=== PATIENT | male | born 1965 | race Caucasian/White ===

== ENCOUNTER → 2019-03-30 09:52 | Outpatient (BNVA) | payer MEDICARE, MEDICAID, SELFPAY | PROVIDERS: Family Provider Family Medicine; PCP Family Medicine; Visit Provider Nurse Practitioner | DX: I10 Essential (primary) hypertension (principal); E55.9 Vitamin D deficiency, unspecified; M81.0 Age-related osteoporosis without current pathological fracture; Z79.83 Long term (current) use of bisphosphonates | CPT/HCPCS: 80053; 82306 ==

== ENCOUNTER 2019-04-13 10:22 | Outpatient (CLI) | payer MEDICARE, MEDICAID, SELFPAY ==
--- NOTE | 2019-04-13 16:15 | XR_ITS ---
WS: [id number] SCREENING DEXA SCAN [place] CLINICAL INFORMATION: bone evaluation COMPARISON: December 24, 2016 FINDINGS: The L1-L4 bone mineral density measures 0.907. This corresponds to a T score score of -2.6 and Z scor e of -1.8. Left femoral neck bone mineral density measures 0.718. This corresponds to a T score of -2.7 and Z sc ore of -1.9. Right femoral neck bone mineral density measures 0.730. This corresponds to a T score -2.6of and Z sc ore of -1.9. XR/XR DEXA axial skeleton* 57405 IMPRESSION: Osteoporosis Patient's FRAX calculated 10 year probability for major osteoporotic fracture i s 6.9 % and osteoporotic hip fracture is 1.5%. Bone mineral density in the lumbar spine has increased 0.7% and decreased -0.1% in the femoral necks since 2017.
== END 2019-04-13 10:23 | disposition home or self-care (01) ==
LOC: RADWPI 10:30
PROVIDERS: Family Provider Family Medicine; PCP Nurse Practitioner; Visit Provider Nurse Practitioner
DX: M81.0 Age-related osteoporosis without current pathological fracture (principal); Z79.83 Long term (current) use of bisphosphonates
CPT/HCPCS: 77080

== ENCOUNTER → 2019-05-23 09:58 | Outpatient (BNVA) | payer MEDICARE, MEDICAID, SELFPAY | PROVIDERS: Family Provider Family Medicine; PCP Nurse Practitioner; Visit Provider Nurse Practitioner | DX: R39.81 Functional urinary incontinence (principal); F63.9 Impulse disorder, unspecified; M81.0 Age-related osteoporosis without current pathological fracture; Z79.83 Long term (current) use of bisphosphonates; E55.9 Vitamin D deficiency, unspecified; K21.9 Gastro-esophageal reflux disease without esophagitis; R82.998 Other abnormal findings in urine | CPT/HCPCS: 80053; 81003; 85025; G0103 ==

== ENCOUNTER → 2019-05-24 08:49 | Outpatient (BNVA) | payer MEDICARE, MEDICAID, SELFPAY | PROVIDERS: Family Provider Family Medicine; PCP Nurse Practitioner; Visit Provider Psychiatry & Neurology Psychiatry | DX: F79 Unspecified intellectual disabilities (principal); F63.9 Impulse disorder, unspecified | CPT/HCPCS: 99213 ==

== ENCOUNTER → 2019-06-29 11:08 | Outpatient (BNVA) | payer MEDICARE, MEDICAID, SELFPAY | PROVIDERS: Family Provider Family Medicine; PCP Nurse Practitioner; Visit Provider Nurse Practitioner | DX: L55.9 Sunburn, unspecified (principal); K21.9 Gastro-esophageal reflux disease without esophagitis | CPT/HCPCS: 81000 ==

== ENCOUNTER 2019-07-12 09:23 | Outpatient (CLI) | payer MEDICARE, MEDICAID, SELFPAY ==
--- NOTE | 2019-07-12 09:15 | XR_ITS ---
WS: [id number] ABDOMEN: SUPINE FILM HISTORY: KIDNEY AND URETERAL STONE COMPARISON: 03/09/2018, 07/07/2018 Normal bowel gas pattern. Mild osteopenia. Right kidney: No calcifications identified. Kidney is obscured by bowel content. Left kidney: Ovoid calcification over the LEFT abdomen measures 1.6 cm. No ureteral calcification. XR/XR KUB [id number] IMPRESSION: LEFT renal calcification 1.6 cm.
== END 2019-07-12 09:24 | disposition home or self-care (01) ==
LOC: RAD 09:26
PROVIDERS: Family Provider Family Medicine; PCP Nurse Practitioner; Visit Provider Urology
DX: N20.2 Calculus of kidney with calculus of ureter (principal); N20.0 Calculus of kidney; N39.0 Urinary tract infection, site not specified; R39.198 Other difficulties with micturition
CPT/HCPCS: 74018; 80053; 81001

== ENCOUNTER → 2019-09-19 07:34 | Outpatient (BNVA) | payer MEDICARE, MEDICAID, SELFPAY | PROVIDERS: Family Provider Family Medicine; PCP Nurse Practitioner; Visit Provider Psychiatry & Neurology Psychiatry | DX: F63.9 Impulse disorder, unspecified (principal); F79 Unspecified intellectual disabilities; Z79.899 Other long term (current) drug therapy | CPT/HCPCS: 99214 ==

== ENCOUNTER → 2019-09-27 09:03 | Outpatient (BNVA) | payer MEDICARE, MEDICAID, SELFPAY | PROVIDERS: Family Provider Family Medicine; PCP Nurse Practitioner; Visit Provider Psychiatry & Neurology Psychiatry | DX: Z79.899 Other long term (current) drug therapy (principal) | CPT/HCPCS: 80164 ==

== ENCOUNTER → 2019-10-17 07:49 | Outpatient (BNVA) | payer MEDICARE, MEDICAID, SELFPAY | PROVIDERS: Family Provider Family Medicine; PCP Nurse Practitioner; Visit Provider Psychiatry & Neurology Psychiatry | DX: F63.9 Impulse disorder, unspecified (principal); F79 Unspecified intellectual disabilities | CPT/HCPCS: 99214 ==

== ENCOUNTER → 2019-11-14 07:49 | Outpatient (BNVA) | payer MEDICARE, MEDICAID, SELFPAY | PROVIDERS: Family Provider Family Medicine; PCP Nurse Practitioner; Visit Provider Psychiatry & Neurology Psychiatry | DX: F63.9 Impulse disorder, unspecified (principal); F79 Unspecified intellectual disabilities | CPT/HCPCS: 99213 ==

== ENCOUNTER → 2019-11-21 16:53 | Outpatient (BNVA) | payer MEDICARE, MEDICAID, SELFPAY | PROVIDERS: Family Provider Family Medicine; PCP Nurse Practitioner; Visit Provider Nurse Practitioner | DX: N39.44 Nocturnal enuresis (principal) | CPT/HCPCS: 81000 ==

== ENCOUNTER → 2020-01-09 07:35 | Outpatient (BNVA) | payer MEDICARE, MEDICAID, SELFPAY | PROVIDERS: Family Provider Family Medicine; PCP Nurse Practitioner; Visit Provider Psychiatry & Neurology Psychiatry | DX: F79 Unspecified intellectual disabilities (principal); F63.9 Impulse disorder, unspecified; Z79.899 Other long term (current) drug therapy | CPT/HCPCS: 99214 ==

== ENCOUNTER → 2020-02-02 08:16 | Outpatient (BNVA) | payer MEDICARE, MEDICAID, SELFPAY | PROVIDERS: Family Provider Family Medicine; PCP Nurse Practitioner; Visit Provider Psychiatry & Neurology Psychiatry | DX: F63.9 Impulse disorder, unspecified (principal); F79 Unspecified intellectual disabilities | CPT/HCPCS: 80053; 80164; 85025; 99213 ==

== ENCOUNTER → 2020-04-17 07:17 | Outpatient (BNVA) | payer MEDICARE, MEDICAID, SELFPAY | PROVIDERS: Family Provider Family Medicine; PCP Nurse Practitioner; Visit Provider Psychiatry & Neurology Psychiatry | DX: F63.9 Impulse disorder, unspecified (principal); F79 Unspecified intellectual disabilities | CPT/HCPCS: 99214 ==

== ENCOUNTER → 2020-06-15 07:33 | Outpatient (BNVA) | payer MEDICARE, MEDICAID, SELFPAY | PROVIDERS: Family Provider Family Medicine; PCP Nurse Practitioner; Visit Provider Psychiatry & Neurology Psychiatry | DX: F63.9 Impulse disorder, unspecified (principal); F79 Unspecified intellectual disabilities; R15.9 Full incontinence of feces | CPT/HCPCS: 99213 ==

== ENCOUNTER → 2020-06-26 09:35 | Outpatient (BNVA) | payer MEDICARE, MEDICAID, SELFPAY | PROVIDERS: Family Provider Family Medicine; PCP Nurse Practitioner; Visit Provider Nurse Practitioner | DX: E55.9 Vitamin D deficiency, unspecified (principal); K21.9 Gastro-esophageal reflux disease without esophagitis; Z12.5 Encounter for screening for malignant neoplasm of prostate; Z13.6 Encounter for screening for cardiovascular disorders | CPT/HCPCS: 80053; 80061; 80164; 82306; 85025; G0103 ==

== ENCOUNTER 2020-07-10 09:58 | Outpatient (CLI) | payer MEDICARE, MEDICAID, SELFPAY ==
--- NOTE | 2020-07-10 10:00 | XRR_ITS ---
PROCEDURE INFORMATION: Exam: XR Abdomen Exam date and time: 07/10/2020 10:16 AM Age: 54 years old Clinical indication: Condition or disease; Kidney or ureter condition; Calculus (stone) in kidney; Additional info: N20.0 - calculus of kidney TECHNIQUE: Imaging protocol: XR of the abdomen. Views: Frontal supine view of the abdomen. 1 View. COMPARISON: CR XR KUB [id number] 07/12/2019 9:32 AM FINDINGS: Gastrointestinal tract: Prominent stool. Organs: Persistent 17 mm calcification overlying the left renal fossa suggesting urolithiasis. Calcifications overlying the inferior pelvis, presumably prostate in etiology. Bones/joints: Mild scoliosis and degenerative change. When correlating with the previous study, no significant interval changes are present. XR/XR KUB [id number] IMPRESSION: Persistent 17 mm calcification overlying the left renal fossa suggesting urolithiasis.
== END 2020-07-10 09:59 | disposition home or self-care (01) ==
LOC: RAD 10:04
PROVIDERS: PCP Nurse Practitioner; Visit Provider Urology
DX: N20.0 Calculus of kidney (principal)
CPT/HCPCS: 74018; 81003

== ENCOUNTER → 2020-08-09 12:56 | Outpatient (BNVA) | payer MEDICARE, MEDICAID, SELFPAY | PROVIDERS: PCP Nurse Practitioner; Visit Provider Psychiatry & Neurology Psychiatry | DX: F63.9 Impulse disorder, unspecified (principal); F79 Unspecified intellectual disabilities; N39.44 Nocturnal enuresis | CPT/HCPCS: 99214 ==

== ENCOUNTER 2020-08-10 07:05 | Outpatient (CLI) | payer MEDICARE, MEDICAID, SELFPAY | END 2020-08-10 07:06 | disposition home or self-care (01) | LOC: LAB 07:06 | PROVIDERS: PCP Nurse Practitioner; Visit Provider Psychiatry & Neurology Psychiatry | DX: Z79.899 Other long term (current) drug therapy (principal) | CPT/HCPCS: 36415; 80164 ==

== ENCOUNTER → 2020-08-29 13:43 | Outpatient (BNVA) | payer MEDICARE, MEDICAID, SELFPAY | PROVIDERS: PCP Nurse Practitioner; Visit Provider Psychiatry & Neurology Psychiatry | DX: F63.9 Impulse disorder, unspecified (principal); F79 Unspecified intellectual disabilities; F98.0 Enuresis not due to a substance or known physiological condition; F98.1 Encopresis not due to a substance or known physiological condition | CPT/HCPCS: 99214 ==

== ENCOUNTER → 2021-01-07 11:00 | Outpatient (BNVA) | payer MEDICARE, MEDICAID, SELFPAY | PROVIDERS: PCP Nurse Practitioner; Visit Provider Psychiatry & Neurology Psychiatry | DX: F63.9 Impulse disorder, unspecified (principal); F79 Unspecified intellectual disabilities; F98.1 Encopresis not due to a substance or known physiological condition; F98.0 Enuresis not due to a substance or known physiological condition; M81.0 Age-related osteoporosis without current pathological fracture; H60.90 Unspecified otitis externa, unspecified ear | CPT/HCPCS: 99213 ==

== ENCOUNTER → 2021-04-23 10:23 | Outpatient (BNVA) | payer MEDICARE, MEDICAID, SELFPAY | PROVIDERS: PCP Nurse Practitioner; Visit Provider Psychiatry & Neurology Psychiatry | DX: F63.9 Impulse disorder, unspecified (principal); F79 Unspecified intellectual disabilities; F98.0 Enuresis not due to a substance or known physiological condition; F98.1 Encopresis not due to a substance or known physiological condition; Z79.899 Other long term (current) drug therapy | CPT/HCPCS: 99214 ==

== ENCOUNTER → 2021-04-24 09:38 | Outpatient (BNVA) | payer MEDICARE, MEDICAID, SELFPAY | PROVIDERS: PCP Nurse Practitioner; Visit Provider Psychiatry & Neurology Psychiatry | DX: Z79.899 Other long term (current) drug therapy (principal) | CPT/HCPCS: 80053; 80164 ==

== ENCOUNTER 2021-07-09 09:32 | Outpatient (CLI) | payer MEDICARE, MEDICAID, SELFPAY ==
--- NOTE | 2021-07-09 09:30 | XR_ITS ---
WS: [id number] XR KUB [id number] REASON FOR EXAM: Renal Stone FINDINGS: 18 x 10 mm calculus overlies the upper pole of the left kidney and is unchanged compared to 07/10/[address] demonstrated small intrarenal calculi are not readily identifiable. No other calculi id entified in the urinary tract. No other significant abnormality of the abdomen or pelvis. XR/XR KUB [id number] IMPRESSION: Stable left upper pole renal calculus.
== END 2021-07-09 09:33 | disposition home or self-care (01) ==
LOC: RAD 09:38
PROVIDERS: PCP Family Medicine; Visit Provider Urology
DX: N20.0 Calculus of kidney (principal); N39.0 Urinary tract infection, site not specified
CPT/HCPCS: 74018; 81003; 87086; 99213

== ENCOUNTER → 2021-08-27 10:23 | Outpatient (BNVA) | payer MEDICARE, MEDICAID, SELFPAY | PROVIDERS: PCP Family Medicine; Visit Provider Psychiatry & Neurology Psychiatry | DX: F63.9 Impulse disorder, unspecified (principal); F79 Unspecified intellectual disabilities; Z79.899 Other long term (current) drug therapy | CPT/HCPCS: 99213 ==

== ENCOUNTER → 2021-10-04 13:33 | Outpatient (BNVA) | payer MEDICARE, MEDICAID, SELFPAY | PROVIDERS: PCP Family Medicine; Visit Provider Psychiatry & Neurology Psychiatry | DX: Z79.899 Other long term (current) drug therapy (principal) | CPT/HCPCS: 80048; 80053; 80164 ==

== ENCOUNTER 2022-06-23 13:11 | Inpatient (IN) | payer MEDICARE, MEDICAID, SELFPAY ==
[2022-06-23] VITALS (62 sets, daily range): BP systolic 83–117; BP diastolic 49–72; PULSE 52–117; RESP 14–23; TEMP 35.2–36.9; O2SAT 94–100
--- NOTE | 2022-06-23 13:14 | ED_ITS ---
HPI - Weakness General: Chief complaint: Weakness Stated complaint: LETHARGY/ WEAKNESS Time Seen by Provider: 06/23/22 13:14 Limitations: altered mental status History of Present Illness: Mr. Espinoza is a 56-year-old gentleman with history of, per chart review, intellectual disability, hypertension, hyperlipidemia, recurrent UTI presenting to the emergency department for mental status change. The patient himself provides very limited history and denies recent changes that he is noticed. Apparently he showed up at his day program at around 9 AM and staff there noticed that he was different. He was urinating frequently, not ambulating, and seemed more confused with possibility of slurred speech. Symptoms prior to arrival at the day program are unclear. History is otherwise limited by mental status change. Review of Systems General: Reports: ROS unobtainable due to mental status PFSH ED PFSH: Medical History Encounter for ongoing osteoporosis bisphosphonate therapy Essential (primary) hypertension Functional urinary incontinence GERD (gastroesophageal reflux disease) Impulse control disorder Intellectual disability Left renal stone Mixed hyperlipidemia Psychiatric care Recurrent UTI Slow urinary stream Vitamin D deficiency Surgical History Extrusion of teeth All teeth 2018 History of lithotripsy Family History Mother Osteoarthritis Social History Smoking and tobacco status: never smoked Second hand smoke exposure: No Smoking risk assessment/counseling performed?: No Alcohol intake: never Desire information about alcohol rehabilitation?: No Counseling given: No Substance/Drug Use: never Desire information about substance/drug rehabilitation?: No Counseling given: No Adopted: No Caregiver/support person: Yes Lives independently: No Household members: caregiver Housing: House Marital status: Single Number of children: 0 Current occupational status: disabled Current occupational exposures/hazards: No Pets and animals: Yes Pets & animals: dog(s) Current gender identity: Male Physical Exam Const: GENERAL APPEARANCE: cooperative, well developed and ill appearing HENMT: COMMON NORMALS: normocephalic and atraumatic HEAD & SCALP: normocephalic and atraumatic Eye: COMMON NORMALS: conjunctivae normal CONJUNCTIVA: Yes conjunctivae normal SCLERA: sclerae normal Neck/C-Spine: COMMON NORMALS: supple GENERAL: Yes trachea midline Resp: COMMON NORMALS: clear to auscultation bilaterally EFFORT & INSPECTION: Yes able to speak in complete sentences AUSCULTATION: clear to auscultation bilaterally Cardio: COMMON NORMALS: regular rate and regular rhythm RATE: regular rate RHYTHM: regular rhythm GI: COMMON NORMALS: Soft to palpation PALPATION: Yes Soft to palpation and Yes Tenderness to palpation present (GI) Extremity: GENERAL: Yes normal exam except as noted and No edema Neuro: COMMON NORMALS: moves all extremities SENSORIUM/ORIENTATION: Yes Orientation impaired and Yes somnolent Course Vital Signs: Vital signs: Vital Signs Temperature 98.5 F 06/25/22 04:00 Pulse Rate 58 L 06/25/22 14:41 Respiratory Rate 16 06/25/22 14:41 Blood Pressure 102/89 06/25/22 14:41 Pulse Oximetry 95 06/25/22 14:41 Oxygen Delivery Me thod Room Air 06/25/22 04:00 MDM - Weakness Medical Decision Making 56-year-old gentleman presenting with altered mental status. He is somewhat ill-appearing however nontoxic. Exam as above. EKG notable for sinus bradycardia with normal axis and intervals, there are nonspecific ST segment abnormalities, no STEMI. Labs notable for no leukocytosis, normal hemoglobin and thrombocytopenia again noted. ABG without clear explanation for symptoms. No acute metabolic derang ement. Negative range 2-hour delta troponin. Urinalysis is concerning for urinary tract infection. Toxic ingestions and UDS are negative. CT head negative for acute intracranial pathology. Given severity of symptoms additional CT imaging is warranted. Findings of possible gastritis, right UVJ stone, incidental findings. Patient treated in the emergency department with antibiotics for UTI and IV fluids. Most likely etiology of symptoms is complicated UTI. Discussed with hospitalist service who was agreeable to admit patient. Medical Records I reviewed the patient's medical records. Lab Data I reviewed the patient's lab results. 06/25/22 06:40 06/25/22 06:40 Radiology Impressions Chest X-Ray 06/23/22 13:20 IMPRESSION: 1. No acute cardiopulmonary finding. Head CT 06/23/22 13:20 IMPRESSION: 1. No evidence of intracranial hemorrhage or mass effect. 2. Moderate small vessel changes. Moderate parenchymal volume loss. 3. Vascular calcification. 4. No acute intracranial findings. Chest/Abdomen/Pelvis CT 06/23/22 15:17 IMPRESSION: 1. Dependent atelectasis in the lungs bilaterally. 2. Multiple intra-articular loose bodies in the anterior right shoulder joint. 3. Incidental/nonacute findings are listed in the report. IMPRESSION: 1. Findings raising suspicion for gastritis. Recommend clinical correlation. Further evaluation with upper endoscopy recommended as clinically indicated. 2. 5.1 mm stone at the right ureterovesicular junction. No hydronephrosis. 3. Stable nonobstructing stones in the left kidney, the largest measures 1.6 x 1.1 cm. 4. The bladder is decompressed by a Bond catheter. Air in the bladder, likely related to Bond catheter placement. 5. Scattered diverticula in the sigmoid colon. No evidence for diverticulitis. 6. Scattered diverticula in the colon. No evidence for diverticulitis. 7. Incidental/nonacute findings are listed in the report. COMMENTS: Consistent with the [employer]'s Incidental Findings Committee white paper (J Am Aly Radiol 2018): Any incidental renal lesion less than 1 cm or classified as too small to characterize, or any incidental cystic renal lesion characterized as simple-appearing, is likely benign. No follow-up imaging is recommended for these lesions per consensus recommendations based on imaging criteria. Laboratory Results WBC 4.1 10^3/uL (4.0-10.0) 06/23/22 14:59 RBC 4.16 10^6/uL (4.1-5.3) 06/23/22 14:59 Hgb 13.8 g/dL (11.7-16.6) 06/23/22 14:59 Hct 41.7 % (42.0-52.0) L 06/23/22 14:59 MCV 100.2 fl (80-94) H 06/23/22 14:59 MCH 33.2 pg (28.0-34.0) 06/23/22 14:59 MCHC 33.1 g/dL (30.0-36.0) 06/23/22 14:59 RDW 12.9 % (12.1-15.1) 06/23/22 14:59 Plt Count 104 10^3/cmm (130-400) L 06/23/22 14:59 MPV 9.7 fL (7.4-10.4) 06/23/22 14:59 Neut % (Auto) 54.0 % 06/23/22 14:59 Lymph % (Auto) 33.7 % 06/23/22 14:59 [place] % (Auto) 9.9 % 06/23/22 14:59 Eos % (Auto) 1.7 % 06/23/22 14:59 Baso % (Auto) 0.5 % 06/23/22 14:59 Neut # (Auto) 2.23 10^3/uL (1.8-7.7) 06/23/22 14:59 Lymph # (Auto) 1.4 10^3/uL (0.8-4.8) 06/23/22 14:59 [place] # (Auto) 0.4 10^3/uL (0.2-0.9) 06/23/22 14:59 Eos # (Auto) 0.1 10^3/uL (0.0-0.8) 06/23/22 14:59 Baso # (Auto) 0.0 10^3/uL (0.0-0.1) 06/23/22 14:59 Nucleated RBC % (auto) 0 % 06/23/22 14:59 Nucleated RBCs # 0.0 /100WBC 06/23/22 14:59 Specimen Type Arterial 06/23/22 13:30 Sample Site Radial, left 06/23/22 13:30 ABG pH 7.42 (7.35-7.45) 06/23/22 13:30 ABG pCO2 47.5 mmHg (35-45) H 06/23/22 13:30 ABG pO2 65.6 mmHg (80.0-100.0) L 06/23/22 13:30 ABG HCO3 30.7 mmol/L (22-26) H 06/23/22 13:30 ABG Base Excess 5.2 mmol/L (-2.0-2.0) H 06/23/22 13:30 Boy Test Pos 06/23/22 13:30 Hematocrit 43.0 % (42-52) 06/23/22 13:30 O2 Delivery Device Room air 06/23/22 13:30 FiO2 21.0 % 06/23/22 13:30 Manufacturing Development Engineer ID Amh 06/23/22 13:30 Sodium 141 mmol/L (136-145) 06/23/22 14:02 Potassium 3.9 mmol/L (3.5-5.1) 06/23/22 14:02 Chloride 104 mmol/L (98-107) 06/23/22 14:02 Carbon Dioxide 29 mmol/L (22-29) 06/23/22 14:02 Anion Gap 11.9 (5-19) 06/23/22 14:02 BUN 15 mg/dL (6-20) 06/23/22 14:02 Creatinine 0.8 mg/dL (0.7-1.2) 06/23/22 14:02 GFR Calculation 99.3 mL/min (90-130) 06/23/22 14:02 Glucose 122 mg/dL (65-115) H 06/23/22 14:02 POC Glucose 120 mg/dL (70-110) H 06/23/22 14:18 Calculated Osmolality 294 mOsm/kg (285-295) 06/23/22 14:02 Lactate 1.3 mmol/L (0.5-2.2) 06/23/22 14:02 Calcium 9.5 mg/dL (8.5-10.5) 06/23/22 14:02 Total Bilirubin 0.3 mg/dL (0.15-1.2) 06/23/22 14:02 AST 27 U/L (0-40) 06/23/22 14:02 ALT 25 U/L (0-41) 06/23/22 14:02 Alkaline Phosphatase 58 U/L (40-130) 06/23/22 14:02 Troponin T Baseline 9 ng/L (0-15) 06/23/22 14:02 Troponin T 120 Minute 8.85 ng/L (0-15) 06/23/22 16:10 Delta Troponin T -0.15 ABS# (0-10) L 06/23/22 16:10 C-Reactive Protein 3.0 mg/L (0.0-4.9) 06/23/22 14:02 Total Protein 6.8 g/dL (6.6-8.7) 06/23/22 14:02 Albumin 3.8 g/dL (3.5-5.2) 06/23/22 14:02 Globulin 3.0 g/dL (1.3-4.6) 06/23/22 14:02 Procalcitonin 0.06 ng/mL (0-0.5) 06/23/22 14:02 TSH 2.11 uIU/mL (0.27-4.20) 06/23/22 14:02 Urine Color Light yellow (Yellow) 06/23/22 14:30 Urine Appearance Clear (CLEAR) 06/23/22 14:30 Urine pH 7 (5-7) 06/23/22 14:30 Ur Specific Round O 1.005 (1.005-1.030) 06/23/22 14:30 Urine Protein Neg (Negative) 06/23/22 14:30 Urine Glucose (UA) Norm (Normal) 06/23/22 14:30 Urine Ketones Negative (Negative) 06/23/22 14:30 Urine Blood 3+ (Negative) H 06/23/22 14:30 Urine Nitrate Negative (Negative) 06/23/22 14:30 Urine Bilirubin Neg (Negative) 06/23/22 14:30 Urine Urobilinogen Norm mg/dL (Negative) 06/23/22 14:30 Ur Leukocyte Esterase 2+ (Negative) H 06/23/22 14:30 Urine RBC 5-10 /hpf (0-2) H 06/23/22 14:30 Urine WBC 15-25 /hpf (0-5) H 06/23/22 14:30 Ur Squamous Epith Cells Rare /hpf (0-5) 06/23/22 14:30 Amorphous Sediment Not Reportable 06/23/22 14:30 Urine Bacteria Trace /hpf (NONE) 06/23/22 14:30 Salicylates < 0.3 mg/dL (3-10) L 06/23/22 14:02 Urine Opiates Screen Negative ng/mL (Negative) 06/23/22 14:30 Acetaminophen < 5.0 ug/mL (10-30) L 06/23/22 14:02 Ur Barbiturates Screen Negative ng/mL (Negative) 06/23/22 14:30 Ur Phencyclidine Scrn Negative ng/mL (Negative) 06/23/22 14:30 Ur Amphetamines Screen Negative ng/mL (Negative) 06/23/22 14:30 U Benzodiazepines Scrn Negative ng/mL (Negative) 06/23/22 14:30 Urine Cocaine Screen Negative ng/mL (Negative) 06/23/22 14:30 U Marijuana (THC) Screen Negative ng/mL (Negative) 06/23/22 14:30 Ethyl Alcohol < 10 mg/dL (0-10) 06/23/22 14:02 Discharge Plan Discharge Patient Disposition: Placed in Observation Admit Provider: Roger Simmons Clinical Impression: Recurrent UTI, Acute alteration in mental status, Calculus of ureterovesical junction (UVJ) Coding Level of Care Code ED Boiler Tube Reamer for Den Renee
--- NOTE | 2022-06-23 13:20 | CT_ITS ---
WS: [id number] CT HEAD TECHNIQUE: Noncontrast CT of the head obtained from the skullbase to the vertex. CLINICAL INFORMATION: ams COMPARISON: 2007 DLP: 1089.[address] scans at [facility] use at least one of these dose optimization techniques: automated e xposure control; mA and/or kV adjustment per patient size (includes targeted exams where dose is matc hed to clinical indication); or iterative reconstruction. FINDINGS: No evidence of intracranial hemorrhage or mass effect. Ventricular system and basal cisterns are heller nt. Moderate small vessel changes with moderate parenchymal volume loss. No extra-axial fluid collect ions. No evidence of mass or mass effect. Mild mucosal thickening ethmoid air cells and LEFT frontal ethmoidal recess. Mastoid air cells are we ll aerated. Normal posterior nasopharynx. Vermian atrophy is similar to 2007. CT/CT head wo con* [id number] IMPRESSION: 1. No evidence of intracranial hemorrhage or mass effect. 2. Moderate small vessel changes. Moderate parenchymal volume loss. 3. Vascular calcification. 4. No acute intracranial findings.
--- NOTE | 2022-06-23 13:20 | XR_ITS ---
WS: [id number] Exam: XR chest 1V portable [id number] Date/Time of Exam: 06/23/2022 1:20 PM Reason For Exam: ams Comparison 10/24/2006. The lungs are fully inflated and clear. Heart size top limits normal. No pleural effusions. Numerous old left-sided rib fractures are noted. The mediastinum is normal in contour. Numerous rounded calcif ications noted in the region of the right shoulder probably representing multiple synovial osteochond romas. Degenerative change of the right shoulder. XR/XR chest 1V portable [id number] IMPRESSION: 1. No acute cardiopulmonary finding.
--- NOTE | 2022-06-23 13:34 | ECG_ITS ---
[facility] Test Date: 2022-06-23 Pat Name: Sabino Espinoza Department: Room: Gender: Male Psychotherapist Counselor: : 1965 Requested By: Kvng Fulton Order Number: [id number] Dianne MD: Rodolfo Lopes M.D. Measurements Intervals [place] Rate: 59 P: 19 WI: 127 QRS: 66 QRSD: 101 T: 1 QT: 413 QTc: 412 Interpretive Statements SINUS BRADYCARDIA WITH OCCASIONAL VENTRICULAR PREMATURE COMPLEXES No previous ECG available for comparison Electronically Signed On 06-23-2022 14:29:40 CDT by Rodolfo Lopes M.D. [id number]
[2022-06-23 13:41] LABS: ABG PCO2 47.5 mmHg (35-45); ABG PH Result 7.42 (7.35-7.45); Base Excess ABG 5.2 mmol/L (-2.0-2.0); Blood Gas Allen Test Pos; Blood Gas Operator Identificat AMH; Blood Gas Sample Site Radial, left; Blood Gas Sample Type Arterial; HCO3 ABG 30.7 mmol/L (22-26); Oxygen Device ROOM AIR; PO2 ABG 65.6 mmHg (80.0-100.0)
[2022-06-23 14:45] LABS: Lactate (Lactic Acid level) 1.3 mmol/L (0.5-2.2)
[2022-06-23 14:51] LABS: Troponin(5th) Baseline 9 ng/L (0-15)
[2022-06-23 14:58] LABS: Procalcitonin 0.06 ng/mL (0-0.5); Thyroid Stimulating Hormone 2.11 uIU/mL (0.27-4.20)
[2022-06-23 15:07] LABS: Add Urine Microscopic? YES; Bilirubin Urine Neg (Negative); Blood Urine 3+ (Negative); Glucose Urine UA Norm (Normal); Ketones Urine Negative (Negative); Leukocyte Esterase Urine 2+ (Negative); Nitrate Urine Negative (Negative); Protein Urine Neg (Negative); Specific Gravity, Urine 1.005 (1.005-1.030); Squamous Epithelial Cell Urine RARE /hpf (0-5); Urine Appearance Clear (CLEAR); Urine Color Light yellow (Yellow); Urobilinogen Urine Norm (Negative); WBC Urine 15-25 /hpf (0-5); pH Urine 7 (5-7)
[2022-06-23 15:08] LABS: Add Urine Culture? Yes; Bacteria Urine TRACE /hpf
[2022-06-23 15:10] LABS: Alanine Aminotransferase 25 U/L (0-41); Albumin Level 3.8 g/dL (3.5-5.2); Alkaline Phosphatase 58 U/L (40-130); Anion Gap 11.9 (5-19); Aspartate Amino Transferase 27 U/L (0-40); Blood Urea Nitrogen 15 mg/dL (6-20); Calcium 9.5 mg/dL (8.5-10.5); Carbon Dioxide 29 mmol/L (22-29); Chloride 104 mmol/L (98-107); Glomerular Filtration Rate 99.3 mL/min (90-130); Glucose 122 mg/dL (65-115); Osmolality Calculated 294 mOsm/kg (285-295); Potassium 3.9 mmol/L (3.5-5.1); Sodium 141 mmol/L (136-145); Total Bilirubin 0.3 mg/dL (0.15-1.2); Total Protein 6.8 g/dL (6.6-8.7)
[2022-06-23 15:12] LABS: Acetaminophen < 5.0 ug/mL (10-30); Alcohol Level < 10 mg/dL (0-10); Salicylate < 0.3 mg/dL (3-10)
[2022-06-23 15:13] LABS: Basophils % 0.5 %; Eosinophils # 0.1 10^3/uL (0.0-0.8); Eosinophils % 1.7 %; Hematocrit 41.7 % (42.0-52.0); Hemoglobin 13.8 g/dL (11.7-16.6); Lymphocytes # 1.4 10^3/uL (0.8-4.8); Lymphocytes % 33.7 %; Mean Corpuscular HGB Conc 33.1 g/dL (30.0-36.0); Mean Corpuscular Hemoglobin 33.2 pg (28.0-34.0); Mean Corpuscular Volume 100.2 fl (80-94); Mean Platelet Volume 9.7 fL (7.4-10.4); Monocytes # 0.4 10^3/uL (0.2-0.9); Monocytes % 9.9 %; Neutrophils # 2.23 10^3/uL (1.8-7.7); Nucleated Red Blood Cells % 0 %; Platelet Count 104 10^3/cmm (130-400); Red Blood Count 4.16 10^6/uL (4.1-5.3); Red Cell Distribution Width 12.9 % (12.1-15.1); White Blood Count 4.1 10^3/uL (4.0-10.0)
[2022-06-23 15:14] LABS: Amphetamines Screen Urine Negative (Negative); Barbiturates Screen Urine Negative (Negative); Benzodiazepines Screen Urine Negative (Negative); Cocaine Screen Urine Negative (Negative); Opiate Screen Urine Negative (Negative); PCP Screen Urine Negative (Negative); THC Screen Urine Negative (Negative)
--- NOTE | 2022-06-23 15:17 | CTR_ITS ---
PROCEDURE INFORMATION: Exam: CT Chest With Contrast; Diagnostic Exam date and time: 06/23/2022 3:46 PM Age: 56 years old Clinical indication: Other: PT altered non verbal; Additional info: AMS, ? infectious source TECHNIQUE: Imaging protocol: Diagnostic computed tomography of the chest with contrast. Sagittal and coronal reformatted images were created and reviewed. Radiation optimization: All CT scans at this facility use at least one of these dose optimization techniques: automated exposure control; mA and/or kV adjustment per patient size (includes targeted exams where dose is matched to clinical indication); or iterative reconstruction. Contrast material: OMNI 350; Contrast volume: 100 ml; Contrast route: INTRAVENOUS (IV); REPORTING DATA: Count of CT and Cardiac NM exams in prior 12 months: This patient has received 0 known CTs and 0 known cardiac nuclear medicine studies in the 12 months prior to the current study. COMPARISON: CR XR chest 1V portable [id number] 06/23/2022 1:37 PM RADIATION DOSE METRICS: Total DLP (mGy-cm): 1014 FINDINGS: Trachea: Tracheobronchial structures are patent. Lungs: Lungs are clear bilaterally. Dependent atelectasis in the lungs bilaterally. No pulmonary parenchymal nodules or masses. Pleural spaces: No pneumothorax. No pleural effusion. Heart: Stable moderate enlargement of the heart. Esophagus: The esophagus is unremarkable. Mediastinal space: No mediastinal hematoma. No pneumomediastinum. Lymph nodes: No lymphadenopathy. Vasculature: Mild atherosclerotic changes in the visualized arteries. Pulmonary arteries are unremarkable. Pulmonary veins are unremarkable. Bones/joints: Marked degenerative changes at the right shoulder. Multiple intra-articular loose bodies in the anterior right shoulder joint. Insert spine DJD multilevel multiple old posterior left rib fractures. Soft tissues: The extrathoracic soft tissues are unremarkable. PROCEDURE INFORMATION: Exam: CT Abdomen And Pelvis With Contrast Exam date and time: 06/23/2022 3:46 PM Age: 56 years old Clinical indication: Other: PT altered non verbal; Additional info: AMS, ? infectious source TECHNIQUE: Imaging protocol: Computed tomography of the abdomen and pelvis with contrast. Sagittal and coronal reformatted images were created and reviewed. Radiation optimization: All CT scans at this facility use at least one of these dose optimization techniques: automated exposure control; mA and/or kV adjustment per patient size (includes targeted exams where dose is matched to clinical indication); or iterative reconstruction. Contrast material: OMNI 350; Contrast volume: 100 ml; Contrast route: INTRAVENOUS (IV); REPORTING DATA: Count of CT and Cardiac NM exams in prior 12 months: This patient has received 0 known CTs and 0 known cardiac nuclear medicine studies in the 12 months prior to the current study. COMPARISON: CT kidney stone [id number] 07/07/2018 8:15 AM RADIATION DOSE METRICS: Total DLP (mGy-cm): 1014 FINDINGS: Liver: The liver is unremarkable. Gallbladder and bile ducts: The gallbladder is unremarkable. No biliary ductal dilatation. Pancreas: The pancreas is unremarkable. No pancreatic ductal dilatation. Spleen: The spleen is unremarkable. Adrenal glands: The right and left adrenal glands are unremarkable. Kidneys and ureters: The right and left kidneys are unremarkable. The right and left ureters are unremarkable. Subcentimeter hypodense focus in the right kidney that is too small to characterize, however likely represents a small cyst. 5.1 mm stone at the right ureterovesicular junction. No hydronephrosis. Stable nonobstructing stones in the left kidney, the largest measures 1.6 x 1.1 cm. The right and left ureters are unremarkable. Stomach and bowel: Scattered diverticula in the sigmoid colon. No evidence for diverticulitis. Scattered diverticula in the colon. No evidence for diverticulitis. No acute abnormality in the small bowel. Thickening of the rugal folds of the stomach. Findings raise suspicion for gastritis. Appendix: The appendix is visualized and is unremarkable. No findings to suggest acute appendicitis. Intraperitoneal space: No free intraperitoneal air. No ascites. No loculated fluid collections to suggest an abscess. Vasculature: Mild atherosclerotic changes in the visualized arteries. No evidence for aortic aneurysm or aortic dissection. Hepatic veins, portal veins, splenic vein, and SMV are patent. Lymph nodes: No lymphadenopathy. Urinary bladder: The bladder is decompressed by a Bond catheter. Air in the bladder, likely related to Bond catheter placement. Reproductive: Stable nonspecific parenchymal calcifications in the prostate gland. Bones/joints: Degenerative changes in the spine and hips. Soft tissues: No acute abnormality in the extra-abdominal soft tissues. CT/CT chest abdpel w/*[id number] IMPRESSION: 1. Dependent atelectasis in the lungs bilaterally. 2. Multiple intra-articular loose bodies in the anterior right shoulder joint. 3. Incidental/nonacute findings are listed in the report. IMPRESSION: 1. Findings raising suspicion for gastritis. Recommend clinical correlation. Further evaluation with upper endoscopy recommended as clinically indicated. 2. 5.1 mm stone at the right ureterovesicular junction. No hydronephrosis. 3. Stable nonobstructing stones in the left kidney, the largest measures 1.6 x 1.1 cm. 4. The bladder is decompressed by a Bond catheter. Air in the bladder, likely related to Bond catheter placement. 5. Scattered diverticula in the sigmoid colon. No evidence for diverticulitis. 6. Scattered diverticula in the colon. No evidence for diverticulitis. 7. Incidental/nonacute findings are listed in the report. COMMENTS: Consistent with the [employer]'s Incidental Findings Committee white paper (J Am Aly Radiol 2018): Any incidental renal lesion less than 1 cm or classified as too small to characterize, or any incidental cystic renal lesion characterized as simple-appearing, is likely benign. No follow-up imaging is recommended for these lesions per consensus recommendations based on imaging criteria.
--- NOTE | 2022-06-23 15:21 | ECG_ITS ---
[facility] Test Date: 2022-06-23 Pat Name: Sabino Espinoza Department: Room: Gender: Male Head Of Sales: : 1965 Requested By: Kvng Fulton Order Number: [id number] Dianne MD: Boris Jansen M.D. Measurements Intervals [place] Rate: 57 P: 38 [place]: 131 QRS: 68 QRSD: 106 T: 18 QT: 412 QTc: 402 Interpretive Statements SINUS BRADYCARDIA NONSPECIFIC T-WAVE ABNORMALITY Compared to ECG 06/23/2022 13:34:36 T-wave abnormality now present Ventricular premature complex(es) no longer present Electronically Signed On 06-24-2022 10:12:26 CDT by Boris Jansen M.D. [id number]
[2022-06-23] MEDS: cefTRIAXone 1,000 MG in sodium chloride 0.9% (plus) 50 ML 100 MG IV (16:03)
[2022-06-23] MEDS: iohexol 350 mg/mL 500 mL Btl (per mL) IV (16:08)
[2022-06-23] MEDS: sodium chloride 0.9% 1,000 ML 999 ML IV (16:09)
[2022-06-23 17:23] LABS: Troponin 5 2HR 8.85 ng/L (0-15)
--- NOTE | 2022-06-23 17:29 | P.CONIM_ITS ---
Providers/Reason For Consult Consulting Physician/Specialty*: Urology/follow-up Reason for Consult*: Ureteral calculus, pyuria Requesting Physician: : Primary Care Provider: Hayley Swain DO History of Present Illness History of Present Illness Sabino Espinoza is a 56 year old male Well-known to me for history of urolithiasis and recurrent UTIs His last office visit was on 07/09/2021 and he was scheduled for follow-up in about a year from that point. He has chronic pyuria and a left renal calculus that has been observed for some quite some period of time. No symptoms related to it. Regarding his UTIs he has been maintained on METHENAMINE HIPPURATE with 1 g vitamin C each dose on a twice daily schedule. That has been effective in suppressing UTIs. Has not had any obvious stone symptoms for quite some time This hospitalization he presented somnolent with mental status changes. Work-up: Urine pyuria Normal white count Normal creatinine and lactate CT scan was interpreted as having a 5 mm right UVJ stone and a 1.6 cm stable nonobstructing left upper pole stone. On my review of the CT scan there is a calcification in the area of the right pelvis but it appears to be outside and below the ureter on my review. There is a similar calcification noted on a CT scan performed in June 2018. There is no hydronephrosis on today's film. Recommendations: Continue antibiotics. No indication for ureteral stent at this point. Review of Systems General: Reports: ROS unobtainable due to mental status Medications/Allergies Home Medications Medication Instructions Recorded Confirmed Last Taken Type sunscreen lotion 1 applic topical 6XD PRN sun 08/13/20 06/23/22 Unknown Rx exposure #118 mL acetaminophen 325 mg tablet 325 mg PO Q6H PRN pain #30 tabs 09/10/20 06/23/22 Unknown Rx (Tylenol) sunscreen SPF 15 lotion 1 applic topical 6XD PRN sun 09/10/20 06/23/22 Unknown Rx exposure #118 mL diaper,brief,adult,disposable #56 ea 09/12/20 06/23/22 Unknown Rx (Depend Underwear For Men Large-Extra Large) rosuvastatin 5 mg tablet (Crestor) 5 mg PO DAILY #30 tabs 11/20/20 06/23/22 06/23/22 Rx ibandronate 150 mg tablet 150 mg PO .Monthly 01/07/21 06/23/22 Unknown History cholecalciferol (vitamin D3) 25 See Rx Instructions .Route 03/19/21 06/23/22 0 06/23/22 Rx mcg (1,000 unit) tablet .COMPLEX #30 ea vitamin with calcium See Rx Instructions .Route 03/19/21 06/23/22 06/23/22 Rx no.72-iron 27 mg-folic acid 1 mg .COMPLEX #30 tabs tablet ( Vitamins Plus Low Iron) calcium carbonate 500 mg calcium 500 mg PO DAILY #30 tabs 05/22/21 06/23/22 06/23/22 Rx (1,250 mg) tablet (Oyster Shell Calcium 500) ascorbic acid (vitamin C) 1,000 mg See Rx Instructions .Route 07/09/21 06/23/22 06/23/22 Rx tablet (Vitamin C) .COMPLEX #240 tabs methenamine hippurate 1 gram tablet See Rx Instructions .Route 11/11/21 06/23/22 06/23/22 Rx .COMPLEX #60 tabs tamsulosin 0.4 mg capsule See Rx Instructions .Route 05/27/22 06/23/22 06/22/22 Rx .COMPLEX #90 caps divalproex 500 mg tablet,delayed See Rx Instructions .Route 06/10/22 06/23/22 06/23/22 Rx release .COMPLEX #120 tabs fluvoxamine 100 mg tablet See Rx Instructions .Route 06/10/22 06/23/22 06/23/22 Rx .COMPLEX #60 tabs Allergies Allergy/AdvReac Type Severity Reaction Status Date / Time aripiprazole [From Abilify] Allergy Unknown Unknown Verified 06/23/22 15:26 fluphenazine [From Prolixin] Allergy Unknown Verified 06/23/22 15:26 haloperidol [From Haldol] Allergy Unknown Verified 06/23/22 15:26 olanzapine [From Zyprexa] Allergy Unknown Verified 06/23/22 15:26 PFSH Acute PFSH: Medical History Encounter for ongoing osteoporosis bisphosphonate therapy Essential (primary) hypertension Functional urinary incontinence GERD (gastroesophageal reflux disease) Impulse control disorder Intellectual disability Left renal stone Mixed hyperlipidemia Psychiatric care Recurrent UTI Slow urinary stream Vitamin D deficiency Surgical History Extrusion of teeth All teeth 2018 History of lithotripsy Family History Mother Osteoarthritis Social History Smoking and tobacco status: never smoked Second hand smoke exposure: No Smoking risk assessment/counseling performed?: No Alcohol intake: never Desire information about alcohol rehabilitation?: No Counseling given: No Substance/Drug Use: never Desire information about substance/drug rehabilitation?: No Counseling given: No Adopted: No Caregiver/support person: Yes Lives independently: No Household members: caregiver Housing: House Marital status: Single Number of children: 0 Current occupational status: disabled Current occupational exposures/hazards: No Pets and animals: Yes Pets & animals: dog(s) Current gender identity: Male Vitals/I&O/Wt Last Vital Signs Temp 95.3 F L 06/23/22 13:14 Pulse 57 L 06/23/22 16:45 Resp 15 06/23/22 16:45 BP 102/65 06/23/22 16:45 Pulse Ox 97 06/23/22 16:45 O2 Del Method Room Air 06/23/22 16:45 06/23/22 06/23/22 06/23/22 06:59 14:59 22:59 Intake Total 50 / 50 Balance 50 / 50 Weight last 48 hrs Weight 180 lb Physical Exam Const: COMMON NORMALS: no acute distress and well nourished; negative for alert GENERAL APPEARANCE: well kempt, well developed and lethargic ORIENTATION/CONSCIOUSNESS: Yes lethargic; not confused HENMT: HEAD & SCALP: normal to inspection Eye: COMMON NORMALS: conjunctivae normal CONJUNCTIVA: Yes conjunctivae normal Neck/C-Spine: GENERAL: Yes normal visual inspection Resp: COMMON NORMALS: normal respiratory effort EFFORT & INSPECTION: No labored and No Actively coughing Neuro: COMMON NORMALS: no focal motor deficits SENSORIUM/ORIENTATION: No alert, Yes Orientation impaired and Yes lethargic Psych: APPEARANCE: Yes well kempt ATTITUDE: Yes calm and Yes engaged Skin: COMMON NORMALS: no jaundice Urinary Catheter Management: Bond: Cath Placed During This Visit: yes Urinary Catheter Date of Insertion: 06/23/22 Data 06/24/22 05:13 06/24/22 05:13 Micro: Microbiology 06/23/22 14:02 Blood Culture - Preliminary Blood SPECIMEN COLLECTED 06/23/22 14:10 Blood Culture - Preliminary Blood SPECIMEN COLLECTED A&P Assessment and plan (1) Recurrent UTI: Evidence of ureteral stone complicating clinical picture (2) Left renal stone: Very large nonobstructing chronic left upper pole stone. No change (3) Intellectual disability: Plan 1. No indication for stent at this point. 2 continue IV antibiotics. Consult Attestations Medical Necessity Statement: See attending Coding Level of Care Code Acute Code for Chg Fwd Diagnoses Recurrent UTI N39.0 Left renal stone N20.0 Intellectual disability F79
--- NOTE | 2022-06-23 17:38 | P.HP_ITS ---
Providers/Chief Complaint Primary Care Provider: Hayley Swain DO Chief Complaint: LETHARGY/ WEAKNESS History of Present Illness Sabino Espinoza is a 56 year old male with past medical history of intellectual disability, left renal calculi, came in today with chief complaint of acute onset of altered mental status, according to the patient caregiver, patient was doing fine till yesterday, at baseline he is, more active more communicative, today he has been extremely, somnolent, weak. Caregiver has denied any fever, shortness of breath cough, abdominal pain nausea vomiting, any sick contact.CT head without contrast: Has not shown any acute intracranial pathology.CT chest abdomen and pelvis showed: Tracheobronchial structures,Dependent atelectasis in the lungs bilaterally,5.1 mm stone at the right ureterovesicular junction. No hydronephrosis.Stable nonobstructing stones in the left kidney, the largest measures 1.6 x 1.1 cm. Pertinent labs: WBC 4.1, H&H 13/41, PLT : 104, serum sodium 141 serum potassium, 3.9, BUN 15,SCR: 0.8,RBS:122, Procalcitonin 0.06, lactic acid 1.3 ,TSH: 2.11 , ABG has been reviewed Urinalysis: Suggestive of possible UTI. Review of Systems General: Reports: ROS unobtainable due to mental status Narrative: Patient is also very hard of hearing ROS has been difficult to obtain Medications/Allergies Home Medications Medication Instructions Recorded Confirmed Last Taken Type sunscreen lotion 1 applic topical 6XD PRN sun 08/13/20 06/23/22 Unknown Rx exposure #118 mL acetaminophen 325 mg tablet 325 mg PO Q6H PRN pain #30 tabs 09/10/20 06/23/22 Unknown Rx (Tylenol) sunscreen SPF 15 lotion 1 applic topical 6XD PRN sun 09/10/20 06/23/22 Unknown Rx exposure #118 mL diaper,brief,adult,disposable #56 ea 09/12/20 06/23/22 Unknown Rx (Depend Underwear For Men Large-Extra Large) rosuvastatin 5 mg tablet (Crestor) 5 mg PO DAILY #30 tabs 11/20/20 06/23/22 06/23/22 Rx ibandronate 150 mg tablet 150 mg PO .Monthly 01/07/21 06/23/22 Unknown History cholecalciferol (vitamin D3) 25 See Rx Instructions .Route 03/19/21 06/23/22 06/23/22 Rx mcg (1,000 unit) tablet .COMPLEX #30 ea vitamin with calcium See Rx Instructions .Route 03/19/21 06/23/22 06/23/22 Rx no.72-iron 27 mg-folic acid 1 mg .COMPLEX #30 tabs tablet ( Vitamins Plus Low Iron) calcium carbonate 500 mg calcium 500 mg PO DAILY #30 tabs 05/22/21 06/23/22 06/23/22 Rx (1,250 mg) tablet (Oyster Shell Calcium 500) ascorbic acid (vitamin C) 1,000 mg See Rx Instructions .Route 07/09/21 06/23/22 06/23/22 Rx tablet (Vitamin C) .COMPLEX #240 tabs methenamine hippurate 1 gram tablet See Rx Instructions .Route 11/11/21 06/23/22 06/23/22 Rx .COMPLEX #60 tabs tamsulosin 0.4 mg capsule See Rx Instructions .Route 05/27/22 06/23/22 06/22/22 Rx .COMPLEX #90 caps divalproex 500 mg tablet,delayed See Rx Instructions .Route 06/10/22 06/23/22 06/23/22 Rx release .COMPLEX #120 tabs fluvoxamine 100 mg tablet See Rx Instructions .Route 06/10/22 06/23/22 06/23/22 Rx .COMPLEX #60 tabs Allergies Allergy/AdvReac Type Severity Reaction Status Date / Time aripiprazole [From Abilify] Allergy Unknown Unknown Verified 06/23/22 15:26 fluphenazine [From Prolixin] Allergy Unknown Verified 06/23/22 15:26 haloperidol [From Haldol] Allergy Unknown Verified 06/23/22 15:26 olanzapine [From Zyprexa] Allergy Unknown Verified 06/23/22 15:26 PFSH Acute PFSH: Medical History Encounter for ongoing osteoporosis bisphosphonate therapy Essential (primary) hypertension Functional urinary incontinence GERD (gastroesophageal reflux disease) Impulse control disorder Intellectual disability Left renal stone Mixed hyperlipidemia Psychiatric care Recurrent UTI Slow urinary stream Vitamin D deficiency Surgical History Extrusion of teeth All teeth 2018 History of lithotripsy Family History Mother Osteoarthritis Social History Smoking and tobacco status: never smoked Second hand smoke exposure: No Smoking risk assessment/counseling performed?: No Alcohol intake: never Desire information about alcohol rehabilitation?: No Counseling given: No Substance/Drug Use: never Desire information about substance/drug rehabilitation?: No Counseling given: No Adopted: No Caregiver/support person: Yes Lives independently: No Household members: caregiver Housing: House Marital status: Single Number of children: 0 Current occupational status: disabled Current occupational exposures/hazards: No Pets and animals: Yes Pets & animals: dog(s) Current gender identity: Male Vitals/I&O/Wt Last Vital Signs Temp 96.1 F L 06/23/22 17:35 Pulse 58 L 06/23/22 17:30 Resp 15 06/23/22 17:30 BP 94/56 06/23/22 17:30 Pulse Ox 95 06/23/22 17:30 O2 Del Method Room Air 06/23/22 17:30 06/23/22 06/23/22 06/23/22 06:59 14:59 22:59 Intake Total 50 / 50 Balance 50 / 50 Weight last 48 hrs Weight 81.647 kg Physical Exam Narrative: Answer few very simple questions. HENMT: COMMON NORMALS: normocephalic and atraumatic HEAD & SCALP: n ormocephalic and atraumatic Resp: COMMON NORMALS: clear to auscultation bilaterally EFFORT & INSPECTION: Yes symmetric chest movement AUSCULTATION: clear to auscultation bilaterally Cardio: COMMON NORMALS: regular rate, regular rhythm, S1 normal heart sound present, S2 normal heart sound present, No gallops present (Cardio), No murmurs present (Cardio), No rub (Cardio) and Peripheral pulses 2+ throughout RATE: regular rate RHYTHM: regular rhythm HEART SOUNDS: S1 normal heart sound present and S2 normal heart sound present PERIPHERAL PULSES: Peripheral pulses 2+ throughout GI: COMMON NORMALS: Normal to inspection, nondistended, normoactive bowel sounds present, Soft to palpation, non-tender, No hepatosplenomegaly present and no masses AUSCULTATION: Yes normoactive bowel sounds PALPATION: Yes Soft to palpation and Yes No hepatosplenomegaly present RECTAL EXAM: Yes deferred Extremity: COMMON NORMALS: no clubbing, cyanosis or edema and no pedal edema Urinary Catheter Management: Bond: Cath Placed During This Visit: yes Urinary Catheter Date of Insertion: 06/23/22 Data 06/23/22 14:59 06/23/22 14:02 Micro: Microbiology 06/23/22 14:02 Blood Culture - Preliminary Blood SPECIMEN COLLECTED 06/23/22 14:10 Blood Culture - Preliminary Blood SPECIMEN COLLECTED A&P Assessment and plan (1) Acute alteration in mental status: (2) Calculus of ureterovesical junction (UVJ): (3) Intellectual disability: (4) Left renal stone: (5) UTI (urinary tract infection): (6) Thrombocytopenia: Plan 56 year old male with past medical history of intellectual disability, left renal calculi, came in today with chief complaint of acute onset of altered mental status, according to the patient caregiver, patient was doing fine till yesterday, at baseline he is, more active more communicative, today he has been extremely, somnolent, weak. Caregiver has denied any fever, shortness of breath cough, abdominal pain nausea vomiting, any sick contact. Assessment: Altered mental status possibly secondary to complicated UTI CT head without contrast: Has not shown any acute intracranial pathology. CT chest abdomen and pelvis showed: Tracheobronchial structures,Dependent atel ectasis in the lungs bilaterally,5.1 mm stone at the right ureterovesicular junction. No hydronephro sis.Stable nonobstructing stones in the left kidney, the largest measures 1.6 x 1.1 cm. Follow blood culture Urine culture Currently he is on Zosyn for complicated UTI Urology has been consulted by ER Patient is also on bear hugger for hypothermia Continue IV hydration with normal saline as his blood pressure is slightly soft. Left renal calculi: Appreciate CT abdomen pelvis result. Urology on board Complicated UTI: Plan as 1 Thrombocytopenia: Currently no hematuria, no petechiae no purpura Monitor platelet count for now CODE STATUS full code DVT prophylaxis on Lovenox Attestations Medical Necessity Statement*: Patient needs to be in hospital for management of altered mental status UTI, need for IV antibiotics, anticipated length of stay greater than 2 midnights Coding Level of Care Code 13224 Diagnoses Acute alteration in mental status R41.82 Calculus of ureterovesical junction (UVJ) N20.1 Intellectual disability F79 Left renal stone N20.0 UTI (urinary tract infection) N39.0 Thrombocytopenia D69.6
[2022-06-23 17:41] LABS: Troponin 5 2HR Delta -0.15 ABS# (0-10)
--- NOTE | 2022-06-23 20:26 | PC.NURSE ---
Primary caregiver at bedside during time of admission assessment. Pt awakes to verbal command and is very tired.
[2022-06-23] MEDS: enoxaparin 40 mg/0.4 mL Syringe SUBCUT (20:40)
[2022-06-23] MEDS: piperacillin-tazobactam 3.375 GM in sodium chloride 0.9% (plus) 50 ML IV (21:12)
[2022-06-23] MEDS: sodium chloride 0.9% 1,000 ML 100 ML IV (21:12)
[2022-06-24] VITALS (7 sets, daily range): BP systolic 94–115; BP diastolic 58–80; PULSE 62–96; RESP 15–17; TEMP 36.4–36.7; O2SAT 91–97
[2022-06-24] MEDS: piperacillin-tazobactam 3.375 GM in sodium chloride 0.9% (plus) 50 ML IV ×3 (04:24→21:07)
[2022-06-24 05:27] LABS: Glucose Point of Care 120 mg/dL (70-110)
[2022-06-24 05:31] LABS: Basophils % 0.3 %; Eosinophils # 0.1 10^3/uL (0.0-0.8); Eosinophils % 1.7 %; Hematocrit 42.9 % (42.0-52.0); Hemoglobin 13.6 g/dL (11.7-16.6); Lymphocytes % 16.6 %; Mean Corpuscular HGB Conc 31.7 g/dL (30.0-36.0); Mean Corpuscular Hemoglobin 32.7 pg (28.0-34.0); Mean Corpuscular Volume 103.1 fl (80-94); Mean Platelet Volume 10.2 fL (7.4-10.4); Monocytes # 0.6 10^3/uL (0.2-0.9); Monocytes % 10.4 %; Neutrophils # 4.15 10^3/uL (1.8-7.7); Neutrophils % 70.8 %; Nucleated Red Blood Cells % 0 %; Platelet Count 104 10^3/cmm (130-400); Red Blood Count 4.16 10^6/uL (4.1-5.3); Red Cell Distribution Width 13.2 % (12.1-15.1); White Blood Count 5.9 10^3/uL (4.0-10.0)
[2022-06-24 06:00] LABS: Blood Urea Nitrogen 11 mg/dL (6-20); Calcium 8.5 mg/dL (8.5-10.5); Carbon Dioxide 26 mmol/L (22-29); Chloride 112 mmol/L (98-107); Glomerular Filtration Rate 99.3 mL/min (90-130); Glucose 67 mg/dL (65-115); Osmolality Calculated 300 mOsm/kg (285-295); Sodium 146 mmol/L (136-145); Thyroid Stimulating Hormone 2.29 uIU/mL (0.27-4.20)
[2022-06-24 06:01] LABS: Anion Gap 11.8 (5-19); Potassium 3.8 mmol/L (3.5-5.1)
--- NOTE | 2022-06-24 06:46 | PM.PN ---
Subjective Subjective: Urology follow-up: Hospital day #2 More alert today. No acute distress. Afebrile last night. Stable vital signs. Benign physical exam Vitals/I&O/Wt Last Vital Signs Temp 97.8 F 06/24/22 04:00 Pulse 64 06/24/22 05:52 Resp 17 06/24/22 04:00 BP 111/70 06/24/22 04:00 Pulse Ox 97 06/24/22 04:00 O2 Del Method Room Air 06/23/22 20:08 06/23/22 06/23/22 06/24/22 14:59 22:59 06:59 Intake Total 1050 / 1050 50 / 1100 Output Total 2024 Balance 1050 / 1050 -1974 / Weight last 48 hrs Weight 180 lb Weight 180 lb Physical Exam Narrative: More alert this morning. Seems more baseline based on prior experiences with him. Abdomen is soft. Nontender. No palpable masses. Good range of motion of extremities Urinary Catheter Management: Bond: Cath Placed During This Visit: yes Reason for Continuing Indwelling Catheter: Accurate Measurement of Urinary Output in Critically Ill Patients Urinary Catheter Date of Insertion: 06/23/22 Data 06/24/22 05:13 06/24/22 05:13 Micro: Microbiology 06/23/22 14:02 Blood Culture - Preliminary Blood SPECIMEN COLLECTED 06/23/22 14:10 Blood Culture - Preliminary Blood SPECIMEN COLLECTED A&P Assessment and plan (1) Recurrent UTI: NO evidence of ureteral stone complicating clinical picture Clinically improving (2) Left renal stone: Very large nonobstructing chronic left upper pole stone. No change (3) Intellectual disability: Plan Continue antibiotic therapy alone. Please contact me if there is need for urologic intervention Attestations Medical Necessity Statement*: See attending Coding Level of Care Code Acute Code for Chg Fwd Diagnoses Recurrent UTI N39.0 Left renal stone N20.0 Intellectual disability F79
[2022-06-24] MEDS: sodium chloride 0.9% 1,000 ML 100 ML IV (08:29)
--- NOTE | 2022-06-24 10:12 | PC.CHAP ---
Pastoral Care Encounter/Spiritual Assessment Type of Contact [] Declined assistant secretary visit [] Patient/Family/Request visit [] Outpatient visit [] Follow-up visit [] Physician referral [] Code/Alert [x] Routine visit [] Staff referral [] Actively dying [] Patient sleeping [] Family support [] [] Out of room [] Palliative care [] [] Receiving care in room [] Pre-surgical visit [] Trauma [] Long length of stay [] ICU visit [] Other: Relational/Emotional Strength [x] Patient feels connected with others/family/visitors/staff [] Distress [] Loneliness/isolation [] Abandonment Spirituality of Patient [x] Person of Delaney [x] Attends Muslim of their Delaney [x] Believes in Prayer [x] Reads Bible or Holiness materials [] There are Spiritual issues to be addressed Vice President Business Development Interventions [x] Prayer [] Active listening [] Non-anxious presence [x] Spiritual/emotional support [] Crisis/trauma care [] Spiritual counseling [] Bereavement support [] Provided bereavement packet [] Provided Bible/devotional materials [] Provided toy/stuffed animal, coloring book to patient or family member [] Provided Communion [] Anointing/[place] [] Salvation [x] Completed spiritual assessment [] Other: Impact on Illness or Injury [] Angry [] Fearful [] Anxious [] Often cries [] Exhaustion [] Unable to work [] Unable to attend scientologist [] Unable to walk/stand [] Unable to read [] Unable to drive [] Unable to eat/drink [] Unable to sleep [] Unable to be with family [] Patient intubated [] Other: Summary Time spent with patient 5 min
[2022-06-24] MEDS: dextrose 5%-sod chloride 0.45% 1,000 ML 75 ML IV (13:08)
--- NOTE | 2022-06-24 17:22 | P.PN_ITS ---
Subjective Subjective: Patient was seen and examined this morning, he is much more alert awake oriented, working with physical therapy, currently using walker, is independent at home, has been afebrile. Urine culture is pending. Serum sodium is slightly high, IV fluid has been changed to D5 half NS. Medications: Medication Review Details: Generic Name Dose Route Start Last Admin Trade Name Demetriusq PRN Reason Stop Dose Admin Piperacillin Sod/T azobactam 50 mls @ 12.5 mls /hr 06/23/22 17:45 06/24/22 13:08 Sod 3.375 gm/ So dium Chloride IV 12.5 mls/hr Q8H JEFF Administration Protocol Dextrose/Sodium Ch loride 1,000 mls @ 75 ml s/hr 06/24/22 08:45 06/24/22 13:08 Dextrose 5%-Sod Chloride 0.45% IV 75 mls/hr .[id number] JEFF Administration Vitals/I&O/Wt Last Vital Signs Temp 97.5 F L 06/24/22 15:38 Pulse 96 06/24/22 15:38 Resp 16 06/24/22 15:38 BP 94/58 06/24/22 15:38 Pulse Ox 97 06/24/22 15:38 O2 Del Method Room Air 06/24/22 15:38 06/24/22 06/24/22 06/24/22 06:59 14:59 22:59 Intake Total 50 / 1100 1290 / 1290 Output Total 2024 2200 / 2200 Balance -1974 / -925 1290 / 1290 -2200 / -910 Weight last 48 hrs Weight 81.647 kg Weight 81.647 kg Physical Exam Narrative: Much more alert awake oriented HENMT: COMMON NORMALS: normocephalic and atraumatic HEAD & SCALP: normocephalic and atraumatic Resp: COMMON NORMALS: clear to auscultation bilaterally EFFORT & INSPECTION: Yes symmetric chest movement AUSCULTATION: clear to auscultation bilaterally Cardio: COMMON NORMALS: regular rate, regular rhythm, S1 normal heart sound present, S2 normal heart sound present, No gallops present (Cardio), No murmurs present (Cardio), No rub (Cardio) and Peripheral pulses 2+ throughout RATE: regular rate RHYTHM: regular rhythm HEART SOUNDS: S1 normal heart sound present and S2 normal heart sound present PERIPHERAL PULSES: Peripheral p ulses 2+ throughout GI: COMMON NORMALS: Normal to inspection, nondistended, normoactive bowel sounds present, Soft to palpation, non-tender, No hepatosplenomegaly present and no masses AUSCULTATION: Yes normoactive bowel sounds PALPATION: Yes Soft to palpation and Yes No hepatosplenomegaly present RECTAL EXAM: Yes deferred Extremity: COMMON NORMALS: no clubbing, cyanosis or edema and no pedal edema Urinary Catheter Management: Bond: Cath Placed During This Visit: yes Reason for Continuing Indwelling Catheter: Accurate Measurement of Urinary Output in Critically Ill Patients Urinary Catheter Date of Insertion: 06/23/22 Data 06/24/22 05:13 06/24/22 05:13 Micro: Microbiology 06/23/22 14:02 Blood Culture - Preliminary Blood NEGATIVE TO DATE 06/23/22 14:10 Blood Culture - Preliminary Blood NEGATIVE TO DATE A&P Assessment and plan (1) Acute alteration in mental status: (2) Calculus of ureterovesical junction (UVJ): (3) Intellectual disability: (4) Left renal stone: (5) UTI (urinary tract infection): (6) Thrombocytopenia: Plan 56 year old male with past medical history of intellectual disability, left renal calculi, came in today with chief complaint of acute onset of altered mental status, according to the patient caregiver, patient was doing fine till yesterday, at baseline he is, more active more communicative, today he has been extremely, somnolent, weak. Caregiver has denied any fever, shortness of breath cough, abdominal pain nausea vomiting, any sick contact. Assessment: Altered mental status possibly secondary to complicated UTI CT head without contrast: Has not shown any acute intracranial pathology. CT chest abdomen and pelvis showed: Tracheobronchial structures,Dependent a telectasis in the lungs bilaterally,5.1 mm stone at the right ureterovesicular junction. No hydronep hrosis.Stable nonobstructing stones in the left kidney, the largest measures 1.6 x 1.1 cm. Follow blood culture Urine culture Currently he is on Zosyn for complicated UTI Urology has been consulted by ER Patient is also on bear hugger for hypothermia Continue IV hydration with normal saline as his blood pressure is slightly soft. Left renal calculi: Appreciate CT abdomen pelvis result. Urology on board: No acute intervention needed at this time Complicated UTI: Plan as 1 Thrombocytopenia: Currently no hematuria, no petechiae no purpura Monitor platelet count for now CODE STATUS full code DVT prophylaxis on Lovenox Attestations Medical Necessity Statement*: Needs to be in hospital for IV antibiotics. Coding Level of Care Code 97034 Diagnoses Acute alteration in mental status R41.82 Calculus of ureterovesical junction (UVJ) N20.1 Intellectual disability F79 Left renal stone N20.0 UTI (urinary tract infection) N39.0 Thrombocytopenia D69.6
[2022-06-25] VITALS: BP 102/61; PULSE 50; RESP 16; TEMP 36.9; O2SAT 94
[2022-06-25] MEDS: dextrose 5%-sod chloride 0.45% 1,000 ML 75 ML IV (03:31)
[2022-06-25 04:00] VITALS: BP 101/63; PULSE 51; RESP 16; TEMP 36.9; O2SAT 95
[2022-06-25 05:16] VITALS: PULSE 68
[2022-06-25] MEDS: piperacillin-tazobactam 3.375 GM in sodium chloride 0.9% (plus) 50 ML IV (05:40)
[2022-06-25 07:19] LABS: Basophils % 0.4 %; Eosinophils # 0.1 10^3/uL (0.0-0.8); Eosinophils % 1.9 %; Hematocrit 40.3 % (42.0-52.0); Hemoglobin 13.2 g/dL (11.7-16.6); Lymphocytes # 1.2 10^3/uL (0.8-4.8); Lymphocytes % 22.8 %; Mean Corpuscular HGB Conc 32.8 g/dL (30.0-36.0); Mean Corpuscular Hemoglobin 32.7 pg (28.0-34.0); Mean Corpuscular Volume 99.8 fl (80-94); Mean Platelet Volume 10.2 fL (7.4-10.4); Monocytes # 0.6 10^3/uL (0.2-0.9); Monocytes % 11.6 %; Neutrophils # 3.27 10^3/uL (1.8-7.7); Neutrophils % 63.1 %; Nucleated Red Blood Cells % 0 %; Platelet Count 90 10^3/cmm (130-400); Red Blood Count 4.04 10^6/uL (4.1-5.3); White Blood Count 5.2 10^3/uL (4.0-10.0)
[2022-06-25 07:36] VITALS: BP 112/74; PULSE 53; RESP 17; O2SAT 95
[2022-06-25 07:49] LABS: Anion Gap 11.7 (5-19); Blood Urea Nitrogen 10 mg/dL (6-20); Calcium 8.7 mg/dL (8.5-10.5); Carbon Dioxide 27 mmol/L (22-29); Chloride 109 mmol/L (98-107); Glomerular Filtration Rate 115.8 mL/min (90-130); Glucose 116 mg/dL (65-115); Osmolality Calculated 298 mOsm/kg (285-295); Potassium 3.7 mmol/L (3.5-5.1); Sodium 144 mmol/L (136-145)
[2022-06-25 12:00] VITALS: BP 102/89; PULSE 58; RESP 16; O2SAT 95
[2022-06-25 14:41] VITALS: BP 102/89; PULSE 58; RESP 16; O2SAT 95
--- NOTE | 2022-06-25 18:13 | PM.DCS ---
Discharge Providers Date of Admission: 06/23/22 17:51 Date of Discharge: June 25, 2022 Attending Provider at Admission: Roger Simmons MD Attending Provider at Discharge: Roger Simmons MD Primary Care Provider: Hayley Swain DO Diagnoses at Discharge Discharge Diagnosis (1) Acute alteration in mental status: Status: Acute (2) Calculus of ureterovesical junction (UVJ): Status: Acute (3) Intellectual disability: Status: Chronic (4) Left renal stone: Status: Acute (5) UTI (urinary tract infection): Status: Acute (6) Thrombocytopenia: Status: Acute Reason for Visit Reason for Visit: LETHARGY/ WEAKNESS Hospital Course Hospital Course HPI: Roger Simmons MD Sabino Espinoza is a 56 year old male with past medical history of intellectual disability, left renal calculi, came in today with chief complaint of acute onset of altered mental status, according to the patient caregiver, patient was doing fine till yesterday, at baseline he is, more active more communicative, today he has been extremely, somnolent, weak. Caregiver has denied any fever, shortness of breath cough, abdominal pain nausea vomiting, any sick contact.CT head without contrast: Has not shown any acute intracranial pathology.CT chest abdomen and pelvis showed:?Tracheobronchial structures,Dependent atelectasis in the lungs bilaterally,5.1 mm stone at the right ureterovesicular junction. No hydronephrosis.Stable nonobstructing stones in the left kidney, the largest measures 1.6 x 1.1 cm. Pertinent labs: WBC 4.1, H&H 13/41, PLT : 104, serum sodium 141 serum potassium, 3.9, BUN 15,SCR: 0.8,RBS:122, Procalcitonin 0.06, lactic acid 1.3 ,TSH: 2.11 , ABG has been reviewed Urinalysis: Suggestive of possible UTI. Hospital course: Patient was admitted for the management of altered mental status secondary to UTI: He was kept on IV antibiotics, blood culture was negative urine culture was negative, patient was discharged on p.o. levofloxacin for 5 days. During the hospital stay patient was also evaluated by urology for his history of left renal calculi: No acute intervention was deemed at this point in time.He will continue to follow urology as outpatient.During the hospital stay patient was also monitored for what appears to be asymptomatic chronic thrombocytopenia, platelet count was monitored, patient was not having any hematuria, petechiae purpura, or any other bleeding.Overall patient has responded well to above medical management and is being discharged in stable condition to home. Physical Exam HENMT: COMMON NORMALS: normocephalic and atraumatic HEAD & SCALP: normocephalic and atraumatic Resp: COMMON NORMALS: clear to auscultation bilaterally EFFORT & INSPECTION: Yes symmetric chest movement AUSCULTATION: clear to auscultation bilaterally Cardio: COMMON NORMALS: regular rate, regular rhythm, S1 normal heart sound present, S2 normal heart sound present, No gallops present (Cardio), No murmurs present (Cardio), No rub (Cardio) and Peripheral pulses 2+ throughout RATE: regular rate RHYTHM: regular rhythm HEART SOUNDS: S1 normal heart sound present and S2 normal heart sound present PERIPHERAL PULSES: Peripheral pulses 2+ throughout GI: COMMON NORMALS: Normal to inspection, nondistended, normoactive bowel sounds present, Soft to palpation, non-tender, No hepatosplenomegaly present and no masses AUSCULTATION: Yes normoactive bowel sounds PALPATION: Yes Soft to palpation and Yes No hepatosplenomegaly present RECTAL EXAM: Yes deferred Extremity: COMMON NORMALS: no clubbing, cyanosis or edema and no pedal edema Urinary Catheter Management: Bond: Cath Placed During This Visit: yes, but has since been removed by the nurse Reason for Continuing Indwelling Catheter: Decision to DC Catheter Urinary Catheter Date of Insertion: 06/23/22 Date Urinary Catheter Removed: 06/25/22 Time Urinary Catheter Discontinued: 13:22 Discharge Data Studies Completed and Pending Completed Studies During Hospitalization Category Date Time Status CT chest abdomen pelvis [CT chest abdpel w/*[id number] Cat Scan 06/23/22 15:17 Completed ] Stat CT head wo con* [id number] Stat Cat Scan 06/23/22 13:20 Completed XR chest 1V portable [id number] Stat Exams 06/23/22 13:20 Completed Pending at discharge Category Date Time Status Blood Culture Stat Lab 06/23/22 14:02 Results Radiology Impressions Chest X-Ray 06/23/22 13:20 IMPRESSION: 1. No acute cardiopulmonary finding. Head CT 06/23/22 13:20 IMPRESSION: 1. No evidence of intracranial hemorrhage or mass effect. 2. Moderate small vessel changes. Moderate parenchymal volume loss. 3. Vascular calcification. 4. No acute intracranial findings. Chest/Abdomen/Pelvis CT 06/23/22 15:17 IMPRESSION: 1. Dependent atelectasis in the lungs bilaterally. 2. Multiple intra-articular loose bodies in the anterior right shoulder joint. 3. Incidental/nonacute findings are listed in the report. IMPRESSION: 1. Findings raising suspicion for gastritis. Recommend clinical correlation. Further evaluation with upper endoscopy recommended as clinically indicated. 2. 5.1 mm stone at the right ureterovesicular junction. No hydronephrosis. 3. Stable nonobstructing stones in the left kidney, the largest measures 1.6 x 1.1 cm. 4. The bladder is decompressed by a Bond catheter. Air in the bladder, likely related to Bond catheter placement. 5. Scattered diverticula in the sigmoid colon. No evidence for diverticulitis. 6. Scattered diverticula in the colon. No evidence for diverticulitis. 7. Incidental/nonacute findings are listed in the report. COMMENTS: Consistent with the [employer]'s Incidental Findings Committee white paper (J Am Aly Radiol 2018): Any incidental renal lesion less than 1 cm or classified as too small to characterize, or any incidental cystic renal lesion characterized as simple-appearing, is likely benign. No follow-up imaging is recommended for these lesions per consensus recommendations based on imaging criteria. Laboratory Results WBC 5.2 10^3/uL (4.0-10.0) 06/25/22 06:40 RBC 4.04 10^6/uL (4.1-5.3) L 06/25/22 06:40 Hgb 13.2 g/dL (11.7-16.6) 06/25/22 06:40 Hct 40.3 % (42.0-52.0) L 06/25/22 06:40 MCV 99.8 fl (80-94) H 06/25/22 06:40 MCH 32.7 pg (28.0-34.0) 06/25/22 06:40 MCHC 32.8 g/dL (30.0-36.0) 06/25/22 06:40 RDW 13.0 % (12.1-15.1) 06/25/22 06:40 Plt Count 90 10^3/cmm (130-400) L 06/25/22 06:40 MPV 10.2 fL (7.4-10.4) 06/25/22 06:40 Neut % (Auto) 63.1 % 06/25/22 06:40 Lymph % (Auto) 22.8 % 06/25/22 06:40 [place] % (Auto) 11.6 % 06/25/22 06:40 Eos % (Auto) 1.9 % 06/25/22 06:40 Baso % (Auto) 0.4 % 06/25/22 06:40 Neut # (Auto) 3.27 10^3/uL (1.8-7.7) 06/25/22 06:40 Lymph # (Auto) 1.2 10^3/uL (0.8-4.8) 06/25/22 06:40 [place] # (Auto) 0.6 10^3/uL (0.2-0.9) 06/25/22 06:40 Eos # (Auto) 0.1 10^3/uL (0.0-0.8) 06/25/22 06:40 Baso # (Auto) 0.0 10^3/uL (0.0-0.1) 06/25/22 06:40 Nucleated RBC % (auto) 0 % 06/25/22 06:40 Nucleated RBCs # 0.0 /100WBC 06/25/22 06:40 Specimen Type Arterial 06/23/22 13:30 Sample Site Radial, left 06/23/22 13:30 ABG pH 7.42 (7.35-7.45) 06/23/22 13:30 ABG pCO2 47.5 mmHg (35-45) H 06/23/22 13:30 ABG pO2 65.6 mmHg (80.0-100.0) L 06/23/22 13:30 ABG HCO3 30.7 mmol/L (22-26) H 06/23/22 13:30 ABG Base Excess 5.2 mmol/L (-2.0-2.0) H 06/23/22 13:30 Boy Test Pos 06/23/22 13:30 Hematocrit 43.0 % (42-52) 06/23/22 13:30 O2 Delivery Device Room air 06/23/22 13:30 FiO2 21.0 % 06/23/22 13:30 Natural Sciences Department Chair ID Amh 06/23/22 13:30 Sodium 144 mmol/L (136-145) 06/25/22 06:40 Potassium 3.7 mmol/L (3.5-5.1) 06/25/22 06:40 Chloride 109 mmol/L (98-107) H 06/25/22 06:40 Carbon Dioxide 27 mmol/L (22-29) 06/25/22 06:40 Anion Gap 11.7 (5-19) 06/25/22 06:40 BUN 10 mg/dL (6-20) 06/25/22 06:40 Creatinine 0.7 mg/dL (0.7-1.2) 06/25/22 06:40 GFR Calculation 115.8 mL/min (90-130) 06/25/22 06:40 Glucose 116 mg/dL (65-115) H 06/25/22 06:40 POC Glucose 120 mg/dL (70-110) H 06/23/22 14:18 Calculated Osmolality 298 mOsm/kg (285-295) H 06/25/22 06:40 Lactate 1.3 mmol/L (0.5-2.2) 06/23/22 14:02 Calcium 8.7 mg/dL (8.5-10.5) 06/25/22 06:40 Total Bilirubin 0.3 mg/dL (0.15-1.2) 06/23/22 14:02 AST 27 U/L (0-40) 06/23/22 14:02 ALT 25 U/L (0-41) 06/23/22 14:02 Alkaline Phosphatase 58 U/L (40-130) 06/23/22 14:02 Troponin T Baseline 9 ng/L (0-15) 06/23/22 14:02 Troponin T 120 Minute 8.85 ng/L (0-15) 06/23/22 16:10 Delta Troponin T -0.15 ABS# (0-10) L 06/23/22 16:10 Troponin T Hi Sens 6Hr 8.20 ng/L (0-15) 06/23/22 20:25 Troponin T Hi Sens 6Hr Delta -0.80 ng/L (0-12) L 06/23/22 20:25 C-Reactive Protein 3.0 mg/L (0.0-4.9) 06/23/22 14:02 Total Protein 6.8 g/dL (6.6-8.7) 06/23/22 14:02 Albumin 3.8 g/dL (3.5-5.2) 06/23/22 14:02 Globulin 3.0 g/dL (1.3-4.6) 06/23/22 14:02 Procalcitonin 0.06 ng/mL (0-0.5) 06/23/22 14:02 TSH 2.29 uIU/mL (0.27-4.20) 06/24/22 05:13 Urine Color Light yellow (Yellow) 06/23/22 14:30 Urine Appearance Clear (CLEAR) 06/23/22 14:30 Urine pH 7 (5-7) 06/23/22 14:30 Ur Specific [place] 1.005 (1.005-1.030) 06/23/22 14:30 Urine Protein Neg (Negative) 06/23/22 14:30 Urine Glucose (UA) Norm (Normal) 06/23/22 14:30 Urine Ketones Negative (Negative) 06/23/22 14:30 Urine Blood 3+ (Negative) H 06/23/22 14:30 Urine Nitrate Negative (Negative) 06/23/22 14:30 Urine Bilirubin Neg (Negative) 06/23/22 14:30 Urine Urobilinogen Norm mg/dL (Negative) 06/23/22 14:30 Ur Leukocyte Esterase 2+ (Negative) H 06/23/22 14:30 Urine RBC 5-10 /hpf (0-2) H 06/23/22 14:30 Urine WBC 15-25 /hpf (0-5) H 06/23/22 14:30 Ur Squamous Epith Cells Rare /hpf (0-5) 06/23/22 14:30 Amorphous Sediment Not Reportable 06/23/22 14:30 Urine Bacteria Trace /hpf (NONE) 06/23/22 14:30 Salicylates < 0.3 mg/dL (3-10) L 06/23/22 14:02 Urine Opiates Screen Negative ng/mL (Negative) 06/23/22 14:30 Acetaminophen < 5.0 ug/mL (10-30) L 06/23/22 14:02 Ur Barbiturates Screen Negative ng/mL (Negative) 06/23/22 14:30 Ur Phencyclidine Scrn Negative ng/mL (Negative) 06/23/22 14:30 Ur Amphetamines Screen Negative ng/mL (Negative) 06/23/22 14:30 U Benzodiazepines Scrn Negative ng/mL (Negative) 06/23/22 14:30 Urine Cocaine Screen Negative ng/mL (Negative) 06/23/22 14:30 U Marijuana (THC) Screen Negative ng/mL (Negative) 06/23/22 14:30 Ethyl Alcohol < 10 mg/dL (0-10) 06/23/22 14:02 Vitals Last Vital Signs Temp 98.5 F 06/25/22 04:00 Pulse 58 L 06/25/22 14:41 Resp 16 06/25/22 14:41 BP 102/89 06/25/22 14:41 Pulse Ox 95 06/25/22 14:41 O2 Del Method Room Air 06/25/22 04:00 Discharge Plan Discharge Patient Disposition: Home Condition: Stable Prescriptions: New levofloxacin 750 mg tablet 750 mg PO DAILY 5 Days Qty: 5 0RF Continued ascorbic acid (vitamin C) [Vitamin C] 1,000 mg tablet See Rx Instructions .ROUTE .COMPLEX Qty: 240 3RF Dose Instruction: TAKE ONE TABLET BY MOUTH TWICE DAILY WITH METHANAMINE Rx Instructions: TAKE ONE TABLET BY MOUTH TWICE DAILY WITH METHANAMINE sunscreen Lotion 1 applic topical 6XD PRN (Reason: sun exposure) Qty: 118 0RF Rx Instructions: apply SPF 50 at least 30 minutes before sun exposure ibandronate 150 mg tablet 150 mg PO .Monthly sunscreen 15 SPF lotion 1 applic TOPICAL 6XD PRN (Reason: sun exposure) Qty: 118 0RF Rx Instructions: apply at least 30 minutes before sun exposure acetaminophen [Tylenol] 325 mg tablet 325 mg PO Q6H PRN (Reason: pain) Qty: 30 0RF Rx Instructions: for pain or fever 101.0 (DME) Depend Underwear For Men L-XL Misc See Rx Instructions .Route Qty: 56 5RF Rx Instructions: use 5 times day rosuvastatin [Crestor] 5 mg tablet 5 mg PO DAILY Qty: 30 2RF Vitamin Plus Low Iron 27 mg iron- 1 mg tablet See Rx Instructions .ROUTE .COMPLEX Qty: 30 2RF Dose Instruction: TAKE ONE TABLET BY MOUTH EVERY DAY Rx Instructions: TAKE ONE TABLET BY MOUTH EVERY DAY cholecalciferol (vitamin D3) 25 mcg (1,000 unit) tablet See Rx Instructions .ROUTE .COMPLEX Qty: 30 2RF Dose Instruction: TAKE ONE TABLET BY MOUTH EVERY DAY Rx Instructions: TAKE ONE TABLET BY MOUTH EVERY DAY calcium carbonate [Oyster Shell Calcium 500] 500 mg calcium (1,250 mg) tablet 500 mg PO DAILY Qty: 30 2RF methenamine hippurate 1 gram tablet See Rx Instructions .ROUTE .COMPLEX Qty: 60 12RF Dose Instruction: TAKE ONE TABLET BY MOUTH TWICE DAILY WITH VITAMIN C 1000MG Rx Instructions: TAKE ONE TABLET BY MOUTH TWICE DAILY WITH VITAMIN C 1000MG tamsulosin 0.4 mg capsule See Rx Instructions .ROUTE .COMPLEX Qty: 90 3RF Dose Instruction: TAKE ONE CAPSULE BY MOUTH AT BEDTIME Rx Instructions: TAKE ONE CAPSULE BY MOUTH AT BEDTIME divalproex 500 mg tablet,delayed release (DR/EC) See Rx Instructions .ROUTE .COMPLEX Qty: 120 11RF Dose Instruction: TAKE TWO TABLETS BY MOUTH TWICE DAILY Rx Instructions: TAKE TWO TABLETS BY MOUTH TWICE DAILY fluvoxamine 100 mg tablet See Rx Instructions .ROUTE .COMPLEX Qty: 60 11RF Dose Instruction: TAKE ONE TABLET BY MOUTH TWICE DAILY Rx Instructions: TAKE ONE TABLET BY MOUTH TWICE DAILY Discharge Orders: Discharge Order (Routine); Ordered 06/25/22 Ordered By: Roger Simmons Referrals: Hayley Swain DO [Primary Care Provider] - 06/30/22 10:00 am Patient Instructions: Levofloxacin (By mouth), Urinary Tract Infection in Men (ED), Opioid Safety Discharge Attestations Time Spent in Discharge Care*: less than 30 min Quality Metrics Clinical Quality Measures [ No reported AMI, CVA or VTE this stay] Coding Level of Care Code Acute Code for Chg Fwd Diagnoses Acute alteration in mental status R41.82 Calculus of ureterovesical junction (UVJ) N20.1 Intellectual disability F79 Left renal stone N20.0 UTI (urinary tract infection) N39.0 Thrombocytopenia D69.6
== END 2022-06-25 14:42 | disposition home or self-care (01) | DRG 690 ==
LOC: ER 17:08 → MEDSURG 17:52
PROVIDERS: Admitting Provider Internal Medicine; Emergency Provider Emergency Medicine; PCP Family Medicine; Visit Provider Internal Medicine
DX: N39.0 Urinary tract infection, site not specified (principal); N20.0 Calculus of kidney; F79 Unspecified intellectual disabilities; D69.6 Thrombocytopenia, unspecified; M81.0 Age-related osteoporosis without current pathological fracture; I10 Essential (primary) hypertension; K21.9 Gastro-esophageal reflux disease without esophagitis; F63.9 Impulse disorder, unspecified; E78.2 Mixed hyperlipidemia; R41.82 Altered mental status, unspecified
CPT/HCPCS: 36415; 36416; 36600; 51702; 70450; 71045; 71260; 74177; 80048; 80053; 80306; 80307; 81001; 82803; 82962; 83605; 84145; 84443; 84484; 85025; 86140; 87040; 87086; 93005; 96365; 96372; 97110; 97116; 97161; 97530; 99285; J0696; J1650; J2543; J7030; J7799; Q9967

== ENCOUNTER 2022-07-31 10:00 | Outpatient (CLI) | payer MEDICARE, MEDICAID, SELFPAY ==
--- NOTE | 2022-07-31 10:13 | XR_ITS ---
WS: [id number] Exam: XR [id number] Date/Time of Exam: 07/31/2022 10:30 AM Reason For Exam: STONES Comparison 07/09/2021. No bowel obstruction or free air. Moderate amount retained stool in the colon. Calcifications superim pose left kidney and apparently represent known renal stones. Bony structures are intact. No sign of organ enlargement. XR/XR KUB [id number] IMPRESSION: 1. No acute abdominal finding. Constipation. 2. Calcification superimpose the left kidney and apparently represent known jose al stones.
== END 2022-07-31 10:01 | disposition home or self-care (01) ==
PROVIDERS: PCP Family Medicine; Visit Provider Urology
DX: N20.0 Calculus of kidney (principal); R39.198 Other difficulties with micturition; Z87.440 Personal history of urinary (tract) infections; K59.00 Constipation, unspecified
CPT/HCPCS: 74018; 81003; 99213

== ENCOUNTER → 2022-08-28 09:31 | Outpatient (BNVA) | payer MEDICARE, MEDICAID, SELFPAY | PROVIDERS: PCP Family Medicine; Visit Provider Psychiatry & Neurology Psychiatry | DX: Z79.899 Other long term (current) drug therapy (principal) | CPT/HCPCS: 80164; 82140 ==

== ENCOUNTER 2022-11-10 18:40 | Emergency (ER) | payer MEDICARE, MEDICAID, SELFPAY ==
[2022-11-10 18:43] VITALS: BP 119/84; PULSE 79; RESP 15; O2SAT 97; BMI 25.0
--- NOTE | 2022-11-10 19:00 | CTR_ITS ---
PROCEDURE INFORMATION: Exam: CT Head Without Contrast Exam date and time: 11/10/2022 7:08 PM Age: 57 years old Clinical indication: Injury or trauma; Fall; Blunt trauma (contusions or hematomas); Additional info: Fall with head injury TECHNIQUE: Imaging protocol: Computed tomography of the head without contrast. Sagittal and coronal reformatted images were created and reviewed. Radiation optimization: All CT scans at this facility use at least one of these dose optimization techniques: automated exposure control; mA and/or kV adjustment per patient size (includes targeted exams where dose is matched to clinical indication); or iterative reconstruction. REPORTING DATA: Count of CT and Cardiac NM exams in prior 12 months: This patient has received 2 known CTs and 0 known cardiac nuclear medicine studies in the 12 months prior to the current study. COMPARISON: CT head wo con* [id number] 06/23/2022 2:43 PM RADIATION DOSE METRICS: Total DLP (mGy-cm): 773 FINDINGS: Brain: No acute intracranial hemorrhage. No acute infarct. No intra-axial or extra-axial masses. Luo-white matter differentiation is preserved. No cerebral edema. No extra-axial fluid collections. No midline shift. No evidence for Chiari 1 malformation. Stable mild atrophy of the brain parenchyma. Stable mildly decreased attenuation in the deep white matter, consistent with mild chronic microangiopathic change. Incidental note of a db cisterna magna. Cerebral ventricles: No hydrocephalus. Paranasal sinuses: Near complete opacification of the bilateral ethmoid air cells and mild mucoperiosteal thickening in the bilateral frontal and sphenoid sinuses, increased compared with the previous study. Mastoid air cells: Mastoid air cells are clear bilaterally. Orbital cavities: No acute abnormality in the visualized orbits. Bones/joints: No acute fracture. Soft tissues: The extracranial soft tissues are unremarkable. Vasculature: Atherosclerotic changes in the visualized arteries. CT/CT head wo con* [id number] IMPRESSION: 1. No acute abnormality of the brain. 2. Near complete opacification of the bilateral ethmoid air cells and mild mucoperiosteal thickening in the bilateral frontal and sphenoid sinuses, increased compared with the previous study. 3. Stable mild atrophy of the brain parenchyma. 4. Stable mild chronic white matter microangiopathic change. 5. Incidental/nonacute findings are listed in the report.
--- NOTE | 2022-11-10 19:02 | ED_ITS ---
HPI - Fall General: Chief Complaint: Fall Stated Complaint: fall Time Seen by Provider: 11/10/22 18:49 Source: patient History of Present Illness: This 57-year-old male with mild MR was brought in for evaluation of fall that occurred shortly prior to arrival. Patient states that he was working in the yard when he lost his balance and fell on a board. Family members who were there, reported loss of consciousness for about 2 minutes. They also reported that he was walking funny. EMS noted that his gait appeared normal. Here in the ER, patient is at his baseline. He denies headache, pain in the extremities or any signs of injury. Associated symptoms-after fall: Denies chest pain, headache(s), lightheadedness or neck pain Review of Systems Const: Denies: chills, body aches or change in appetite Eyes: Denies: change in vision or eye discharge ENMT: Denies: throat pain, dental pain or nasal discharge Card: Denies: chest pain or lightheadedness : Denies: dysuria Musc: Denies: neck pain or back pain Neuro: Reports: other (brief loss of consciousness); Denies: headache(s) or weakness in extremities Psych: Denies: depression Jamal/Lymph: Denies: easy bruising All/Imm: Denies: urticaria, tongue swelling or facial swelling PFSH ED PFSH: Medical History (Updated 11/10/22 @ 21:59 by Gloria Rosales MD) Acute alteration in mental status Calculus of ureterovesical junction (UVJ) Encounter for ongoing osteoporosis bisphosphonate therapy Essential (primary) hypertension Functional urinary incontinence GERD (gastroesophageal reflux disease) Impulse control disorder Intellectual disability Left renal stone Mixed hyperlipidemia Psychiatric care Recurrent UTI Slow urinary stream Thrombocytopenia UTI (urinary tract infection) Vitamin D deficiency Surgical History Extrusion of teeth All teeth 2018 History of lithotripsy Family History Mother Osteoarthritis Social History Smoking and tobacco status: never smoked Second hand smoke exposure: No Smoking risk assessment/counseling performed?: No Alcohol intake: never Desire information about alcohol rehabilitation?: No Counseling given: No Substance/Drug Use: never Desire information about substance/drug rehabilitation?: No Counseling given: No Adopted: No Caregiver/support person: Yes Lives independently: No Household members: caregiver Housing: House Marital status: Single Number of children: 0 Current occupational status: disabled Current occupational exposures/hazards: No Pets and animals: Yes Pets & animals: dog(s) Current gender identity: Male Physical Exam Const: COMMON NORMALS: no acute distress, patient oriented x3, no limitations and alert HENMT: COMMON NORMALS: normocephalic HEAD & SCALP: normocephalic Eye: COMMON NORMALS: EOMs intact bilaterally Neck/C-Spine: COMMON NORMALS: full ROM and supple Chest: COMMONS NORMALS: normal inspection of the chest Resp: COMMON NORMALS: normal respiratory effort, No retractions, No use of accessory muscles and clear to auscultation bilaterally AUSCULTATION: clear to auscultation bilaterally Cardio: COMMON NORMALS: regular rate, regular rhythm and No murmurs present (Cardio) RATE: regular rate RHYTHM: regular rhythm GI: COMMON NORMALS: Normal to inspection, nondistended, normoactive bowel sounds present and non-tender : COMMON NORMALS: Yes no CVA tenderness BLADDER/KIDNEY EXAM: Yes no CVA tenderness Back/Pelvis: COMMON NORMALS: no CVA tenderness and no thoracic nor lumbar tenderness Extremity: GENERAL: Yes normal exam except as noted Neuro: COMMON NORMALS: patient oriented x3 and no focal motor deficits SENSORIUM/ORIENTATION: Yes alert Psych: COMMON NORMALS: mental status grossly normal and cooperative Course Vital Signs: Vital signs: Vital Signs Pulse Rate 74 11/10/22 20:08 Respiratory Rate 15 11/10/22 18:43 Blood Pressure 118/68 11/10/22 20:08 Pulse Oximetry 96 11/10/22 20:08 Oxygen Delivery Me thod Room Air 11/10/22 18:43 MDM - Fall Medical Decision Making Medical decision making: Medical decision making: Patient's caregiver who arrived the ER later notes that patient lives in an assisted living facility and she was with the patient at the time of the fall. She states that patient tripped and fell on all 4 hours and on getting up, he appeared okay. Shortly after that, he acted as if he was going to slump so they caught him and sat him on a chair. He was looking weak at the time. Incident lasted for about 2 minutes following which she was back to his baseline. No loss of consciousness or seizure activity was witnessed. Caregiver added that this was the way he acted the last time he had a UTI. They want him tested for UTI. CT brain is negative for any acute intracranial process. UA is consistent with UTI. He will be treated with ciprofloxacin. Reasons to return were discussed. Lab Data Radiology Impressions Head CT 11/10/22 19:00 IMPRESSION: 1. No acute abnormality of the brain. 2. Near complete opacification of the bilateral ethmoid air cells and mild mucoperiosteal thickening in the bilateral frontal and sphenoid sinuses, increased compared with the previous study. 3. Stable mild atrophy of the brain parenchyma. 4. Stable mild chronic white matter microangiopathic change. 5. Incidental/nonacute findings are listed in the report. Laboratory Results Urine Color Yellow (Yellow) 11/10/22 20:07 Urine Appearance Clear (CLEAR) 11/10/22 20:07 Urine pH 6 (5-7) 11/10/22 20:07 Ur Specific [place] 1.010 (1.005-1.030) 11/10/22 20:07 Urine Protein Neg (Negative) 11/10/22 20:07 Urine Glucose (UA) Trace (Normal) H 11/10/22 20:07 Urine Ketones Negative (Negative) 11/10/22 20:07 Urine Blood Neg (Negative) 11/10/22 20:07 Urine Nitrate Negative (Negative) 11/10/22 20:07 Urine Bilirubin Neg (Negative) 11/10/22 20:07 Urine Urobilinogen Neg mg/dL (Negative) 11/10/22 20:07 Ur Leukocyte Esterase 1+ (Negative) H 11/10/22 20:07 Urine RBC None /hpf (0-2) 11/10/22 20:07 Urine WBC 5-10 /hpf (0-5) H 11/10/22 20:07 Ur Squamous Epith Cells None /hpf (0-5) 11/10/22 20:07 Amorphous Sediment Not Reportable 11/10/22 20:07 Urine Bacteria 1+ /hpf (NONE) H 11/10/22 20:07 Discharge Plan Discharge Patient Disposition: Home Clinical Impression: Fall, UTI (urinary tract infection) Condition: Stable Prescriptions: New Cipro 500 mg tablet 500 mg PO Q12H Qty: 10 0RF No Action sunscreen Lotion 1 applic topical 6XD PRN (Reason: sun exposure) Qty: 118 0RF Rx Instructions: apply SPF 50 at least 30 minutes before sun exposure ibandronate 150 mg tablet 150 mg PO .Monthly chlorhexidine gluconate 0.12 % mouthwash 15 ml buccal DAILY sunscreen 15 SPF lotion 1 applic TOPICAL 6XD PRN (Reason: sun exposure) Qty: 118 0RF Rx Instructions: apply at least 30 minutes before sun exposure acetaminophen [Tylenol] 325 mg tablet 325 mg PO Q6H PRN (Reason: pain) Qty: 30 0RF Rx Instructions: for pain or fever 101.0 (DME) Depend Underwear For Men L-XL Misc See Rx Instructions .Route Qty: 56 5RF Rx Instructions: use 5 times day rosuvastatin [Crestor] 5 mg tablet 5 mg PO DAILY Qty: 30 2RF Vitamin Plus Low Iron 27 mg iron- 1 mg tablet See Rx Instructions .ROUTE .COMPLEX Qty: 30 2RF Dose Instruction: TAKE ONE TABLET BY MOUTH EVERY DAY Rx Instructions: TAKE ONE TABLET BY MOUTH EVERY DAY cholecalciferol (vitamin D3) 25 mcg (1,000 unit) tablet See Rx Instructions .ROUTE .COMPLEX Qty: 30 2RF Dose Instruction: TAKE ONE TABLET BY MOUTH EVERY DAY Rx Instructions: TAKE ONE TABLET BY MOUTH EVERY DAY calcium carbonate [Oyster Shell Calcium 500] 500 mg calcium (1,250 mg) tablet 500 mg PO DAILY Qty: 30 2RF methenamine hippurate 1 gram tablet See Rx Instructions .ROUTE .COMPLEX Qty: 60 12RF Dose Instruction: TAKE ONE TABLET BY MOUTH TWICE DAILY WITH VITAMIN C 1000MG Rx Instructions: TAKE ONE TABLET BY MOUTH TWICE DAILY WITH VITAMIN C 1000MG tamsulosin 0.4 mg capsule See Rx Instructions .ROUTE .COMPLEX Qty: 90 3RF Dose Instruction: TAKE ONE CAPSULE BY MOUTH AT BEDTIME Rx Instructions: TAKE ONE CAPSULE BY MOUTH AT BEDTIME divalproex 500 mg tablet,delayed release (DR/EC) See Rx Instructions .ROUTE .COMPLEX Qty: 120 11RF Dose Instruction: TAKE TWO TABLETS BY MOUTH TWICE DAILY Rx Instructions: TAKE TWO TABLETS BY MOUTH TWICE DAILY fluvoxamine 100 mg tablet See Rx Instructions .ROUTE .COMPLEX Qty: 60 11RF Dose Instruction: TAKE ONE TABLET BY MOUTH TWICE DAILY Rx Instructions: TAKE ONE TABLET BY MOUTH TWICE DAILY ascorbic acid (vitamin C) [Vitamin C] 1,000 mg tablet See Rx Instructions .ROUTE .COMPLEX Qty: 240 3RF Dose Instruction: TAKE ONE TABLET BY MOUTH TWICE DAILY WITH METHANAMINE Rx Instructions: TAKE ONE TABLET BY MOUTH TWICE DAILY WITH METHANAMINE Discharge Orders: Discharge ED (Routine); Ordered 11/10/22 Ordered By: Gloria Rosales Referrals: Hayley Swain DO [Primary Care Provider] - Discharge Diet: Usual diet Discharge Activity: Resume usual activity Patient Instructions: Opioid Safety, Pain Management Activity Restrictions/Additional Instructions: Take ciprofloxacin as prescribed. Maintain adequate hydration. Follow-up with your primary care physician in 3 to 5 days for reevaluation. Return with new or worsening symptoms. Coding Level of Care Code ED Photographic Laboratory Technician for [place]
[2022-11-10 20:08] VITALS: BP 118/68; PULSE 74; O2SAT 96
[2022-11-10 20:31] LABS: Urine Appearance Clear (CLEAR); Urine Color Yellow (Yellow); pH Urine 6 (5-7)
[2022-11-10 20:32] LABS: Add Urine Culture? No; Add Urine Microscopic? YES; Bacteria Urine 1+ /hpf; Bilirubin Urine Neg (Negative); Blood Urine Neg (Negative); Glucose Urine UA Trace (Normal); Ketones Urine Negative (Negative); Leukocyte Esterase Urine 1+ (Negative); Nitrate Urine Negative (Negative); Protein Urine Neg (Negative); Urobilinogen Urine Neg (Negative)
[2022-11-10] MEDS: ciprofloxacin 500 mg Tablet PO (22:26)
[2022-11-10 22:31] VITALS: BP 123/84; PULSE 68; RESP 14; O2SAT 98
== END 2022-11-10 22:18 | disposition home or self-care (01) ==
PROVIDERS: Emergency Provider Family Medicine; PCP Family Medicine
DX: N39.0 Urinary tract infection, site not specified (principal); I10 Essential (primary) hypertension; E78.2 Mixed hyperlipidemia; Z87.440 Personal history of urinary (tract) infections; W01.198A Fall on same level from slipping, tripping and stumbling with subsequent striking against other object, initial encounter
CPT/HCPCS: 70450; 81001; 99284

== ENCOUNTER → 2023-07-01 09:38 | Outpatient (BNVA) | payer MEDICARE, MEDICAID, OTHER, SELFPAY | PROVIDERS: PCP Family Medicine; Visit Provider Psychiatry & Neurology Psychiatry | DX: Z79.899 Other long term (current) drug therapy (principal) | CPT/HCPCS: 80164 ==